=== PATIENT | male | born 1930 | race Caucasian/White ===

== ENCOUNTER 2017-02-27 09:25 | Inpatient (IN) | payer MEDICARE ==
[2017-02-27] MEDS ORDERED: ASPIRIN 81 MG CHEW PO STA (09:48)
[2017-02-27 10:07] LABS: Basophils # (A) 0.1 k/uL (0-0.2); Basophils % (A) 1 %; CH 32.7; CHCM 34.9; Eosinophils # (A) 0.3 k/uL (0-0.7); Eosinophils % (A) 4 %; HCT 40.1 % (39.0-53.0); HDW 2.93; HGB 13.8 gm/dL (13.0-17.5); Luc # (Auto) 0.07; Luc % (Auto) 1; Lymphocytes # (A) 1.3 k/uL (1.0-4.8); Lymphocytes % (A) 20 %; MCH 32.5 pg (25.0-35.0); MCHC 34.5 g/dL (31.0-37.0); MCV 94.2 fL (80.0-100.0); Mean Platelet Volume 6.8; Monocytes # (A) 0.3 k/uL (0-1.0); Monocytes % (A) 5 %; Neutrophils # (A) 4.7 k/uL (1.3-7.7); Neutrophils % (A) 69 %; RBC 4.26 m/uL (4.30-5.90); RDW 13.4 % (11.5-15.5); WBC 6.8 k/uL (3.8-10.6); WBC (Perox) 6.87
[2017-02-27 10:16] LABS: Partial Thromboplastin Time 23.9 sec (22.0-30.0); Prothrombin Time 10.6 sec (9.0-12.0)
--- NOTE | 2017-02-27 10:23 | XR ---
EXAMINATION TYPE: XR chest 2V DATE OF EXAM: 02/27/2017 10:19 AM COMPARISON: NONE INDICATION: Chest pain, respiratory infection TECHNIQUE: Single frontal view of the chest is obtained. FINDINGS: The heart size is normal. The pulmonary vasculature is normal. Minimal subsegmental atelectasis at the left base. Some mild right lower lobe subsegmental atelectasi s may be present. IMPRESSION: 1. Findings suggestive of by basilar subsegmental atelectasis. Mild lower lobe pneumonia could be con sidered. Follow-up exams can be performed as clinically indicated.
[2017-02-27 10:30] LABS: ALT 25 U/L (21-72); AST 20 U/L (17-59); Alkaline Phosphatase 111 U/L (38-126); Anion Gap 11 mmol/L; Blood Urea Nitrogen 13 mg/dL (9-20); Calcium 8.5 mg/dL (8.4-10.2); Carbon Dioxide 24 mmol/L (22-30); Chloride 107 mmol/L (98-107); Creatine Kinase 61 U/L (55-170); Glucose 168 mg/dL (74-99); Non-African American GFR(MDRD) 55 (>60 ml/min/1.73 sqM); Potassium 3.8 mmol/L (3.5-5.1); Sodium 142 mmol/L (137-145); Total Bilirubin 1.1 mg/dL (0.2-1.3); Total Protein 6.5 g/dL (6.3-8.2)
[2017-02-27 10:42] LABS: Creatine Kinase MB 0.4 ng/mL (0.0-2.4); Troponin I <0.012 ng/mL (0.000-0.034)
--- NOTE | 2017-02-27 12:14 | ED ---
Chest Pain HPI - General Chief Complaint: Chest Pain Stated Complaint: chest pain Time Seen by Provider: 02/27/17 09:37 Source: patient, family, RN notes reviewed Mode of arrival: wheelchair Limitations: no limitations - History of Present Illness Initial Comments: This is a 86-year-old male who presents with complaints of chest pain. He states is about a 5/10 he couldn't describe how was felt he states it was last evening when he had a slight cough for the pain woke him up he had a set up for about an hour so before resolved by itself. He denies any fevers chills sweats or phlegm production no prior history of lung or heart disease that he is aware of. He does use a CPAP mask at night. He denies any trauma. MD Complaint: chest pain - Related Data Home Medications Medication Instructions Recorded Confirmed Atorvastatin [Lipitor] 10 mg PO DAILY@1800 02/27/17 02/27/17 Clopidogrel Bisulfate [Plavix] 75 mg PO DAILY@1200 02/27/17 02/27/17 Dorzolamide-Timolol 2%/0.5% 1 drop BOTH EYES TID 02/27/17 02/27/17 [dorzolamide-Timolol 2%/0.5%] Allergies Allergy/AdvReac Type Severity Reaction Status Date / Time No Known Allergies Allergy Verified 02/27/17 10:04 Review of Systems ROS Statement: Those systems with pertinent positive or pertinent negative responses have been documented in the HPI. ROS Other: All systems not noted in ROS Statement are negative. EKG Findings - EKG Results: EKG: interpreted by NIC, sinus rhythm (Sinus rhythm a rate of 77 FL interval 172 QRS duration 120 QT/QTC of 390/441 low-voltage QRS right bundle-branch block no acute ST-T wave changes seen at this time.) Past Medical History Past Medical History: Hyperlipidemia Additional Past Medical History / Comment(s): GLAUCOMA, TIA History of Any Multi-Drug Resistant Organisms: None Reported Past Surgical History: Appendectomy, Cholecystectomy Additional Past Surgical History / Comment(s): PROSTATE SURGERY Past Psychological History: No Psychological Hx Reported Smoking Status: Former smoker Past Alcohol Use History: None Reported Past Drug Use History: None Reported General Exam - General Exam Comments Initial Comments: This is a well-developed well-nourished awake alert oriented 3 male Limitations: no limitations General appearance: alert, in no apparent distress Head exam: Present: atraumatic, normocephalic, normal inspection Eye exam: Present: normal appearance, PERRL, EOMI. Absent: scleral icterus, conjunctival injection, periorbital swelling ENT exam: Present: normal exam, mucous membranes moist Neck exam: Present: normal inspection. Absent: tenderness, meningismus, lymphadenopathy Respiratory exam: Present: normal lung sounds bilaterally. Absent: respiratory distress, wheezes, rales, rhonchi, stridor Cardiovascular Exam: Present: regular rate, normal rhythm, normal heart sounds. Absent: systolic murmur, diastolic murmur, rubs, gallop, clicks GI/Abdominal exam: Present: soft, normal bowel sounds. Absent: distended, tenderness, guarding, rebound, rigid Extremities exam: Present: normal inspection, full ROM, normal capillary refill , pedal edema (Trace edema). Absent: tenderness, joint swelling, calf tenderness Back exam: Present: normal inspection Neurological exam: Present: alert, oriented X3, CN II-XII intact Psychiatric exam: Present: normal affect, normal mood Skin exam: Present: warm, dry, intact, normal color. Absent: rash Course Vital Signs 02/27/17 02/27/17 09:27 09:45 Temperature 98.7 F 96.8 F L Pulse Rate 83 72 Respiratory 16 16 Rate Blood Pressure 130/64 127/66 O2 Sat by Pulse 95 94 L Oximetry Chest Pain MDM - MDM Review the x-ray report no acute findings. Patient is symptom free at this time the presentation IS consistent with new onset angina. I did discuss the findings and him and his family. Patient be admitted. Disposition Clinical Impression: Chest pain, Unstable angina pectoris Disposition: ADMITTED IP TO THIS [facility] Condition: Stable
[2017-02-27] MEDS ORDERED: HEPARIN SODIUM,PORCINE 5,000 UNIT/ML 1 ML VIAL IV ONE (12:16)
[2017-02-27] MEDS ORDERED: NITROGLYCERIN SL TABS 0.4 MG TAB SUBLINGUAL PRN (12:16)
[2017-02-27] MEDS ORDERED: HEPARIN SODIUM,PORCINE/D5W PMX 25,000 UNIT in DEXTROSE/WATER 1 500ML.BAG IV SCH (12:30)
[2017-02-27] MEDS: SODIUM CHLORIDE 0.9% 1,000 ML IV SCH (12:35)
[2017-02-27 16:41] LABS: Creatine Kinase 52 U/L (55-170)
[2017-02-27 16:54] LABS: Creatine Kinase MB 0.3 ng/mL (0.0-2.4); Troponin I <0.012 ng/mL (0.000-0.034)
[2017-02-27] MEDS ORDERED: RX INFO: IV CONTRAST WAS GIVEN 1 EACH MISC MISCELLANE PRN (19:33)
[2017-02-27] MEDS ORDERED: HEPARIN SODIUM,PORCINE 5,000 UNIT/ML 1 ML VIAL IV PRN ×2 (20:13→20:34)
--- NOTE | 2017-02-27 20:21 | CT ---
EXAMINATION TYPE: CT angio chest DATE OF EXAM: 02/27/2017 8:03 PM COMPARISON: NONE HISTORY: Patient complains of episode of chest pain earlier today. Patient has elevated d-dimer. CT DLP: 560 mGycm Automated exposure control for dose reduction was used. CONTRAST: CTA scan of the thorax is performed with IV Contrast, patient injected with 80 mL of Visipaque 320, p ulmonary embolism protocol. There are 3-D post processed images.. FINDINGS: There is a patchy consolidation and mild pleural thickening at the right posterior lung base. There i s some subpleural patchy interstitial infiltrate in the mid and lower lung dimas. I see no pulmonary mass. There are multiple filling defects in the right lower lobe pulmonary arteries. I see no mediastinal a denopathy. There is no pericardial effusion. Thoracic aorta shows no evidence of aneurysm or dissection. Heart size is fairly normal. IMPRESSION: THERE IS A RIGHT LOWER LOBE PULMONARY EMBOLISM AND ALSO INFILTRATE AND MILD PLEURAL THICKENING IN THE RIGHT LOWER LOBE THAT COULD RELATE TO PULMONARY INFARCT. THIS REPORT WAS GIVEN VERBALLY TO HARLEY MIDDLETON AT 8:20 PM.
[2017-02-27] MEDS: DORZOLAMIDE-TIMOLOL 2-0.5% DROPS 10 ML BTL BOTH EYES SCH ×2 (20:24→20:26)
[2017-02-27] MEDS: NITROGLYCERIN OINT 1 INCH/GM PACKET TOPICAL SCH ×2 (20:27→20:29)
[2017-02-27] MEDS: ATORVASTATIN 10 MG TAB PO SCH (20:28)
[2017-02-27] MEDS: PANTOPRAZOLE 40 MG/10 ML VIAL IVP SCH (20:31)
[2017-02-27] MEDS ORDERED: HEPARIN SODIUM,PORCINE 10,000 UNIT/ML 1 ML VIAL IV STA (20:34)
--- NOTE | 2017-02-27 20:34 | HP ---
DATE OF ADMISSION: 02/27/2017 The patient is a pleasant 86-year-old, although a very poor historian came in with complaints of chest in the retrosternal area. He woke up with chest pain and the patient had a couple of hours of chest pain, not related to food. Had a little bit of pleuritic component 5 to 10 in severity, radiating to the left arm. ( ) chest pain mostly shows in the epigastric area although mostly in the abdominal area but he describes severe chest pain. The patient's pain did radiate to the left arm. Never had any history of coronary artery disease in the past. Patient denied any fever, chills. The patient denied any cough ( ). The patient denies any shortness of breath. The patient was complaining of questionable shortness of breath which is pretty vague. The patient denies any lightheadedness. Patient's chest pain has a pleuritic component as mentioned above. Patient says his chest pain is both burning as well as pressure-like sensation not related to food, resolved by itself, lasted for about 2 hour. Denied any diaphoresis. Denied any cough, fever. Patient's chest x-ray did not show any pneumonic process. I am obtaining a D. dimer. Also put him on Protonix. ROS: All other systems were negative. Unable to obtain most of the systems due to his clinical condition. home medications include: 1. Atorvastatin. 2. Plavix. 3. ( ). 4. Timolol eye drops. ALLERGIES: No known drug allergies. PAST MEDICAL HISTORY: Hyperlipidemia, glaucoma, appendectomy, cholecystectomy in the past. SOCIAL HISTORY: Former smoker. Denied any alcohol abuse. FAMILY HISTORY: Denied any family history of premature coronary artery disease. PHYSICAL EXAMINATION: VITAL SIGNS: Temperature 98.7, pulse 72, respiratory rate 16, blood pressure 127/63. Saturating at 94% on room air. GENERAL: The patient is alert and oriented x3, not in any acute distress. Well developed, well nourished. HEENT: Pupils are round and equally reacting to light. EOMI. No scleral icterus. No conjunctival pallor. Normocephalic, atraumatic. No pharyngeal erythema. No thyromegaly. CARDIOVASCULAR: S1 and S2 present. No murmurs, rubs, or gallops. PULMONARY: Chest is clear to auscultation, no wheezing or crackles. ABDOMEN: Soft, nontender, nondistended, normoactive bowel sounds. No palpable organomegaly. MUSCULOSKELETAL: No joint swelling or deformity. EXTREMITIES: No cyanosis, clubbing, or pedal edema. NEUROLOGICAL: Gross neurological examination did not reveal any focal deficits. SKIN: No rashes. LABORATORY DATA: CBC, CMP within normal limits. EKG showed some right bundle branch block without any acute ST-T waves changes. ASSESSMENT AND PLAN: 1. Chest pain appears to be mostly atypical in nature. Anyways we will rule out acute coronary syndrome and unstable angina. Cardiology was consulted. We will repeat two more troponins, further evaluation and management as per cardiology. Patient will be continued on atorvastatin. 2. Chest pain, mostly related to possible gastritis. Patient will be started on empiric Protonix inhibitors. 3. Partial gastrectomy. 4. Hyperlipidemia. 5. Regarding gastritis, we will start him on Protonix. 6. Rule out pulmonary embolism, we will obtain a D. dimer level at this time. MTDD
[2017-02-27] MEDS: HEPARIN SODIUM,PORCINE/D5W PMX 25,000 UNIT in DEXTROSE/WATER 1 500ML.BAG IV SCH (21:25)
[2017-02-27 21:42] LABS: Basophils % (A) 0 %; CH 32.9; CHCM 34.6; Eosinophils # (A) 0.4 k/uL (0-0.7); Eosinophils % (A) 5 %; HCT 38.2 % (39.0-53.0); HDW 2.91; HGB 12.8 gm/dL (13.0-17.5); Luc # (Auto) 0.13; Luc % (Auto) 2; Lymphocytes # (A) 1.8 k/uL (1.0-4.8); Lymphocytes % (A) 25 %; MCH 32.1 pg (25.0-35.0); MCHC 33.6 g/dL (31.0-37.0); MCV 95.7 fL (80.0-100.0); Mean Platelet Volume 6.7; Monocytes # (A) 0.5 k/uL (0-1.0); Monocytes % (A) 6 %; Neutrophils # (A) 4.5 k/uL (1.3-7.7); Neutrophils % (A) 62 %; RBC 3.99 m/uL (4.30-5.90); RDW 13.5 % (11.5-15.5); WBC 7.3 k/uL (3.8-10.6); WBC (Perox) 7.51
[2017-02-27 21:49] LABS: INR 1.1 (<1.1); Partial Thromboplastin Time 71.4 sec (22.0-30.0); Prothrombin Time 11.3 sec (9.0-12.0)
[2017-02-27 22:02] LABS: Creatine Kinase 51 U/L (55-170)
[2017-02-27 22:16] LABS: Creatine Kinase MB 0.4 ng/mL (0.0-2.4); Troponin I <0.012 ng/mL (0.000-0.034)
[2017-02-28 04:56] LABS: Cholesterol 114 mg/dL (<200); HDL Cholesterol 52 mg/dL (40-60); Triglycerides 76 mg/dL (<150)
[2017-02-28 05:02] LABS: Basophils % (A) 0 %; CH 33.1; CHCM 35.6; Eosinophils # (A) 0.3 k/uL (0-0.7); Eosinophils % (A) 4 %; HCT 34.7 % (39.0-53.0); HDW 3.06; HGB 12.5 gm/dL (13.0-17.5); Luc # (Auto) 0.13; Luc % (Auto) 2; Lymphocytes # (A) 1.8 k/uL (1.0-4.8); Lymphocytes % (A) 22 %; MCH 33.5 pg (25.0-35.0); MCV 93.1 fL (80.0-100.0); Mean Platelet Volume 7.2; Monocytes # (A) 0.5 k/uL (0-1.0); Monocytes % (A) 6 %; Neutrophils # (A) 5.3 k/uL (1.3-7.7); Neutrophils % (A) 66 %; RBC 3.72 m/uL (4.30-5.90); WBC (Perox) 8.13
[2017-02-28] MEDS: NITROGLYCERIN OINT 1 INCH/GM PACKET TOPICAL SCH (05:46)
[2017-02-28] MEDS: HEPARIN SODIUM,PORCINE/D5W PMX 25,000 UNIT in DEXTROSE/WATER 1 500ML.BAG IV SCH (08:15)
[2017-02-28] MEDS: DORZOLAMIDE-TIMOLOL 2-0.5% DROPS 10 ML BTL BOTH EYES SCH ×3 (08:57→20:00)
[2017-02-28] MEDS: PANTOPRAZOLE 40 MG/10 ML VIAL IVP SCH (08:58)
[2017-02-28] MEDS ORDERED: ASPIRIN 325 MG TAB PO SCH (09:00)
--- NOTE | 2017-02-28 10:40 | P.CNPUL ---
History of Present Illness Consult date: 02/28/17 Requesting physician: Adilia Saleh Reason for consult: chest pain, abnormal CXR/CT Chief complaint: Chest pain History of present illness: This is a very pleasant 86-year-old gentleman who follows with Dr. Val Caraballo in [place] as his primary care provider. 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 He has a remote history of smoking. No history of COPD/emphysema. He presented here yesterday after waking up with chest pain. He states he sat up at the side of the bed for a bit and it somewhat subsided and he was able to go back to sleep. However while having breakfast he was still having some midsternal chest discomfort. No nausea, no radiation, no diaphoresis, no palpitations, dizziness or lightheadedness. No significant shortness of breath. A CT angiogram revealed a right lower lobe pulmonary embolism and right lower lobe infiltrate with mild pleural thickening in the right lower lobe that could be related to pulmonary infarct. He was admitted and initiated on heparin. He denies any provoking factors. No recent surgery, no recent injury, no long travel, no sedentary lifestyle, no previous history of DVT/PE, no family history. Currently, he is sitting up in a chair at the bedside. He denies any worsening chest discomfort. No shortness of breath, cough or congestion. No fever, chills or night sweats. He is maintaining good O2 saturations in the 90s on room air. No leukocytosis. Troponins are negative 3. Review of Systems 14 point review of system was conducted. All negative other than as mentioned in the HPI. Past Medical History Past Medical History: Cancer, Hyperlipidemia Additional Past Medical History / Comment(s): BILATERAL GLAUCOMA, TIAS X2, PROSTATE CANCER WITH SURGERY/RADIATION. History of Any Multi-Drug Resistant Organisms: None Reported Past Surgical History: Appendectomy, Cholecystectomy, Prostate Surgery Additional Past Surgical History / Comment(s): PROSTATECTOMY, COLONOSCOPY, BILATERAL CATARACT REMOVAL WITH LENS IMPLANTS. Past Anesthesia/Blood Transfusion Reactions: No Reported Reaction Past Psychological History: No Psychological Hx Reported Additional Psychological History / Comment(s): PT LIVES WITH HIS SON. HE USES A CANE TO AMBULATE. THERE IS A DOG IN THE HOME. HE DOES NOT DRIVE, HIS SON TAKES HIM TO [employer]. Smoking Status: Former smoker Past Alcohol Use History: None Reported Additional Past Alcohol Use History / Comment(s): PT STARTED SMOKING IN HIS 20' S AND QUIT IN THE 1970'S Past Drug Use History: None Reported - Past Family History Father Family Medical History: No Reported History Additional Family Medical History / Comment(s): FATHER WAS HEALTHY AND LIVED TO BE IN HIS 90'S Mother Family Medical History: Cancer Additional Family Medical History / Comment(s): MOTHER HAD SPINAL CANCER AND AT THE AGE OF 68YRS. Medications and Allergies Home Medications Medication Instructions Recorded Confirmed Type Atorvastatin [Lipitor] 10 mg PO DAILY@1800 02/27/17 02/27/17 History Clopidogrel Bisulfate [Plavix] 75 mg PO DAILY@1200 02/27/17 02/27/17 History Dorzolamide-Timolol 2%/0.5% 1 drop BOTH EYES TID 02/27/17 02/27/17 History [dorzolamide-Timolol 2%/0.5%] Allergies Allergy/AdvReac Type Severity Reaction Status Date / Time No Known Allergies Allergy Verified 02/27/17 10:04 Physical Exam Vitals: Vital Signs Temp Pulse Pulse Pulse Resp BP BP 02/28/17 07:50 97.6 F 63 16 89/56 02/28/17 05:00 64 18 90/53 02/28/17 04:00 64 18 02/28/17 03:30 98.8 F 62 18 89/54 02/28/17 00:00 97.4 F L 63 18 103/61 02/27/17 20:00 98.0 F 63 16 117/59 02/27/17 15:08 97.5 F L 68 18 119/62 02/27/17 13:28 97.1 F L 57 L 18 121/64 02/27/17 12:27 61 18 115/66 Pulse Ox 02/28/17 07:50 93 L 02/28/17 05:00 94 L 02/28/17 04:00 02/28/17 03:30 94 L 02/28/17 00:00 93 L 02/27/17 20:00 96 02/27/17 15:08 96 02/27/17 13:28 95 02/27/17 12:27 94 L Intake and Output 02/27/17 02/28/1702/28/17 22:59 06:59 14:59 Intake Total 160.333 277.137 68.689 Output Total 300 Balance 160.333 -22.863 68.689 Intake: Intake, IV Titration 160.333 277.137 68.689 Amount Heparin Sodium,Porcine/ 160.333 D5w Pmx 25,000 unit In Dextrose/Water 1 500ml. bag @ 11.306 UNITS/KG/HR 20 mls/hr IV .Q24H RAYNE Rx #:[id number] Heparin Sodium,Porcine/ 277.137 68.689 D5w Pmx 25,000 unit In Dextrose/Water 1 500ml. bag @ 18 UNITS/KG/HR 33. 19 mls/hr IV .Q15H4M RAYNE Rx#:[id number] Output: Urine 300 Other: Voiding Method Toilet Toilet # Voids 1 Weight 92.2 kg 89.8 kg GENERAL EXAM: Alert, active, comfortable in no apparent distress. HEAD: Normocephalic. EYES: Normal reaction of pupils, equal size. NOSE: Clear with pink turbinates. THROAT: No erythema or exudates. NECK: No masses, no JVD. CHEST: No chest wall deformity. LUNGS: Equal air entry with no crackles, wheeze, rhonchi or dullness. CVS: S1 and S2 normal with no audible murmurs, regular rhythm. ABDOMEN: No hepatosplenomegaly, normal bowel sounds, no guarding or rigidity. SPINE: No scoliosis or deformity SKIN: No rashes CENTRAL NERVOUS SYSTEM: No focal deficits, tone is normal in all 4 extremities. Extremities: There is no peripheral edema. No clubbing, no cyanosis. Peripheral pulses are intact. Results - Laboratory Findings CBC and BMP: 02/28/17 02:55 02/27/17 09:53 PT/INR, D-dimer PT 11.3 sec (9.0-12.0) 02/27/17 21:24 INR 1.1 (<1.1) 02/27/17 21:24 D-Dimer 1.41 mg/L FEU (<0.60) H 02/27/17 17:09 Abnormal lab findings: Abnormal Labs 02/27/17 02/27/17 02/27/17 15:46 17:09 17:10 RBC Hgb Hct Plt Count APTT 40.0 H D-Dimer 1.41 H Total Creatine Kinase 52 L 02/27/17 02/27/17 02/27/17 21:24 21:24 21:24 RBC 3.99 L Hgb 12.8 L Hct 38.2 L Plt Count 144 L APTT 71.4 H D-Dimer Total Creatine Kinase 51 L 02/28/17 02/28/17 02:45 02:55 RBC 3.72 L Hgb 12.5 L Hct 34.7 L Plt Count 135 L APTT 177.1 H* D-Dimer Total Creatine Kinase - Diagnostic Findings Chest x-ray: image reviewed CT scan - chest: image reviewed Assessment and Plan Plan: Impression: #1 Chest pain secondary to right lower lobe pulmonary embolism with suspected pulmonary infarct. No clear evidence of acute coronary syndrome. #2 History of prostate cancer, status post prostatectomy/radiation. #3 History of CVA/TIA, treated with atorvastatin and Plavix in the outpatient setting. #4 Hyperlipidemia. #5 Remote history of cigar use. Plan: The patient was seen and evaluated by Dr. Yusuf. His chest x-ray and CT scans were reviewed. We'll obtain an echocardiogram to rule out any significant right ventricular strain. The patient remains on heparin and will be initiated on Xarelto if his insurance covers it if not will be initiated on warfarin. He will need at least 3-6 months of anticoagulation. We will continue to follow make further recommendations based on his clinical status. Time with Patient: Greater than 30
--- NOTE | 2017-02-28 11:44 | ECHOF ---
Referral Reason:Pulmonary embolism, chest pain MEASUREMENTS -------- HEIGHT: 165.1 cm WEIGHT: 89.4 kg BP: 130/40 RVIDd: 4.6 cm (< 3.3) IVSd: 0.8 cm (0.6 - 1.1) LVIDd: 3.8 cm (3.9 - 5.3) LVPWd: 0.9 cm (0.6 - 1.1) IVSs: 1.0 cm LVIDs: 2.5 cm LVPWs: 0.9 cm Ao Diam: 4.5 cm (2.0 - 3.7) AV Cusp: 1.8 cm (1.5 - 2.6) LA Diam: 3.7 cm (2.7 - 3.8) MV EXCURSION: 20.277 mm (> 18.000) MV EF SLOPE: 106 mm/s (70 - 150) EPSS: 1.4 cm MV E Krystian: 0.40 m/s MV DecT: 283 ms MV A Krystian: 0.80 m/s MV E/A Ratio: 0.50 RAP: 5.00 mmHg RVSP: 43.88 mmHg FINDINGS -------- Sinus rhythm. This was a techncally difficult study with suboptimal views, , Definity utilized for enhancement of images. There is mild concentric left ventricular hypertrophy. Overall left ventricular systolic function is normal with, an EF between 55 - 60 %. The diastolic filling pattern is normal for the age of the patient 8.88. The right ventricle is moderate to severely enlarged. The left atrial size is normal. The right atrium is mildly enlarged. 1.5MG OF DEFINITY UTLIZED: 2 OR MORE WALL SEGMENTS NOT VISUALIZED. There is mild aortic valve sclerosis. There is no evidence of aortic regurgitation. Mild mitral annular calcification present. Mild mitral regurgitation is present. Mild tricuspid regurgitation present. There is moderate pulmonary hypertension. The right ventricular systolic pressure, as measured by Doppler, is 43.88mmHg. The pulmonic valve was not well visualized. Aortic Root is Dilated and measures 4.5cm There is no pericardial effusion. CONCLUSIONS -------- 1. There is mild concentric left ventricular hypertrophy. 2. There is moderate pulmonary hypertension. 3. The right ventricular systolic pressure, as measured by Doppler, is 43.88mmHg. 4. The pulmonic valve was not well visualized. 5. Aortic Root is Dilated and measures 4.5cm 6. Overall left ventricular systolic function is normal with, an EF between 55 - 60 %. 7. The diastolic filling pattern is normal for the age of the patient 8.88 8. The right ventricle is moderate to severely enlarged. 9. 1.5MG OF DEFINITY UTLIZED: 2 OR MORE WALL SEGMENTS NOT VISUALIZED. 10. There is mild aortic valve sclerosis. 11. Mild mitral annular calcification present. 12. Mild mitral regurgitation is present. 13. Mild tricuspid regurgitation present. [employer]ATOR: Bel Schroeder RDCS
[2017-02-28] MEDS ORDERED: CLOPIDOGREL 75 MG TAB PO SCH (12:00)
[2017-02-28] MEDS: SODIUM CHLORIDE 0.9% 1,000 ML IV SCH (12:23)
--- NOTE | 2017-02-28 14:36 | US ---
EXAMINATION TYPE: US venous doppler duplex LE DATE OF EXAM: 02/28/2017 2:20 PM COMPARISON: NONE CLINICAL HISTORY: elevated D dimer. SIDE PERFORMED: Bilateral TECHNIQUE: The lower extremity deep venous system is examined utilizing real time linear array sonog dilan with graded compression, doppler sonography and color-flow sonography. VESSELS IMAGED: External Iliac Vein (EIV) Common Femoral Vein Deep Femoral Vein Greater Saphenous Vein *-not seen on left Femoral Vein Popliteal Vein Small Saphenous Vein * Proximal Calf Veins-not seen on right/swelling (* superficial vessels) Patient has extensive swelling bilateral with pitting edema Right Leg: Negative for DVT Left Leg: Negative for DVT No popliteal fossa lesion was identified. IMPRESSION: THIS EXAMINATION IS NEGATIVE FOR DVT IN BOTH LEGS.
--- NOTE | 2017-02-28 14:40 | CONS ---
DATE OF CONSULTATION: This is an 86-year-old elderly gentleman who has been admitted to the hospital with episode of chest discomfort. He presented with chest pressure; said that he had it all evening yesterday; it seems to be worse when he takes a deep breath or coughs. He did not have any fever or chills. His pain seems to be sharp in quality. He had an elevated D-dimer and positive for pulmonary embolism on CT angiography and is now on heparin. He has no chest pain and is resting comfortably without symptoms. PAST MEDICAL HISTORY: 1. Hypertension. 2. Hyperlipidemia. 3. History of TIA in the past; details unclear. 4. History of glaucoma. 5. He is status post appendectomy and cholecystectomy. ALLERGIES: NONE. MEDICATIONS: 1. Lipitor 10 mg daily. 2. Plavix 75 mg daily. 3. Timolol eye drops. On examination, his blood pressure is 108/70. Pulse rate is 68 per minute, regular. HEENT: Unremarkable. Fundus was not examined by me. Neck is supple. JVD is not easily evident. There is no carotid bruit. Heart exam reveals S1, S2 heard normally with somewhat distant heart sounds. There is a short systolic murmur at the base. Lungs reveal diminished air entry in bilateral lung dimas. Abdomen is soft, nontender. Lower extremities reveal diminished pulses. Central nervous system is normal. Laboratory data suggests elevated D-dimer of 1.41. His troponins are unremarkable. His CT angiography revealed evidence of a right lower lobe pulmonary embolism. Echocardiogram revealed enlarged right ventricle with moderately elevated PA pressures and also preserved left ventricular systolic function. IMPRESSION: 1. Acute pulmonary embolism. 2. Hyperlipidemia. 3. History of transient ischemic attack. RECOMMENDATIONS: I agree with the IV heparin. I believe this patient should be on Coumadin as well. We can initiate him on Coumadin. We should probably discontinue the Plavix and aspirin, in view of the fact he is on IV heparin. He will need to be at least 3 months or so on Coumadin. He appears to be hemodynamically stable. No aggressive intervention necessary at this time. I will discontinue both Plavix and aspirin for the time being and consider initiating him on Coumadin. I discussed my thoughts in detail with the patient. Thank you very much for the consult.
[2017-02-28] MEDS: ATORVASTATIN 10 MG TAB PO SCH (17:24)
[2017-02-28] MEDS ORDERED: WARFARIN 7.5 MG TAB PO ONE (18:00)
--- NOTE | 2017-02-28 20:10 | PN ---
Patient is admitted for chest pain, suspicious for pulmonary embolism. We did a CT angiogram of the chest which showed pulmonary embolism in the left lower lobe pulmonary trunk with suspicion of pulmonary infarction. Patient unfortunately is not approved for newer anticoagulants, because of which I will start him on Xarelto. Will see if patient can be bridged with Lovenox. Since he is complaining of chest pain and some shortness of breath, we will keep him here today. REVIEW OF SYSTEMS: CARDIOVASCULAR: No chest pain, no orthopnea, no PND, no palpitations. PULMONARY: As described in HPI. GASTROINTESTINAL: No diarrhea, nausea or vomiting. No abdominal pain. Normoactive bowel sounds. NEUROLOGIC: No headaches, no weakness, no numbness. Medications were reviewed. PHYSICAL EXAMINATION: VITAL SIGNS: Temperature 97.2, pulse of 63, respiratory rate of 16. Blood pressure is 103/54. Saturating at 93% on room air. GENERAL: The patient is alert and oriented x3, not in any acute distress. Well developed, well nourished. HEENT: Pupils are round and equally reacting to light. EOMI. No scleral icterus. No conjunctival pallor. Normocephalic, atraumatic. No pharyngeal erythema. No thyromegaly. CARDIOVASCULAR: S1 and S2 present. No murmurs, rubs, or gallops. PULMONARY: Chest is clear to auscultation, no wheezing or crackles. ABDOMEN: Soft, nontender, nondistended, normoactive bowel sounds. No palpable organomegaly. MUSCULOSKELETAL: No joint swelling or deformity. EXTREMITIES: No cyanosis, clubbing, or pedal edema. NEUROLOGICAL: Gross neurological examination did not reveal any focal deficits. SKIN: No rashes. LABORATORY DATA: Patient's APTT is a bit elevated, because of which we will hold the heparin obviously. CT angiogram of the chest as mentioned above. Patient does not have any DVT on the Doppler of the lower extremity. Patient may have an occult malignancy which need to be evaluated for, but considering his age patient may not be a candidate for any oncological evaluation. Patient is not a candidate for any screening tests, either, as he is past the screening test age. His aspirin will be discontinued. ASSESSMENT AND PLAN: 1. Left lower lobe pulmonary embolism with infarction. 2. History of partial gastrectomy in the past. 3. Hyperlipidemia. 4. Glaucoma. For above-mentioned chronic medical problems, patient will be continued on his home medications.
[2017-03-01 00:56] LABS: Glucose,Whole Blood 125 mg/dL (75-99)
[2017-03-01] MEDS: HEPARIN SODIUM,PORCINE/D5W PMX 25,000 UNIT in DEXTROSE/WATER 1 500ML.BAG IV SCH (02:31)
[2017-03-01 02:49] LABS: INR 1.1 (<1.1); Partial Thromboplastin Time 57.2 sec (22.0-30.0); Prothrombin Time 10.9 sec (9.0-12.0)
[2017-03-01 02:53] LABS: Basophils % (A) 1 %; CH 32.8; CHCM 34.7; Eosinophils # (A) 0.3 k/uL (0-0.7); Eosinophils % (A) 5 %; HCT 35.8 % (39.0-53.0); HDW 2.94; HGB 12.2 gm/dL (13.0-17.5); Luc # (Auto) 0.09; Luc % (Auto) 1; Lymphocytes # (A) 1.2 k/uL (1.0-4.8); Lymphocytes % (A) 19 %; MCH 32.4 pg (25.0-35.0); MCV 95.1 fL (80.0-100.0); Mean Platelet Volume 7.4; Monocytes # (A) 0.4 k/uL (0-1.0); Monocytes % (A) 6 %; Neutrophils # (A) 4.5 k/uL (1.3-7.7); Neutrophils % (A) 68 %; RBC 3.76 m/uL (4.30-5.90); RDW 13.3 % (11.5-15.5); WBC 6.5 k/uL (3.8-10.6); WBC (Perox) 6.39
[2017-03-01 03:58] VITALS: TEMP 97.6
[2017-03-01] MEDS: PANTOPRAZOLE 40 MG/10 ML VIAL IVP SCH (08:52)
[2017-03-01] MEDS: DORZOLAMIDE-TIMOLOL 2-0.5% DROPS 10 ML BTL BOTH EYES SCH (08:52)
--- NOTE | 2017-03-01 11:18 | P.PN ---
Subjective Principal diagnosis: Acute pulmonary embolism This is a very pleasant 86-year-old gentleman who follows with Dr. Val Caraballo in [place] as his primary care provider. 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 He has a remote history of smoking. No history of COPD/emphysema. He presented here yesterday after waking up with chest pain. He states he sat up at the side of the bed for a bit and it somewhat subsided and he was able to go back to sleep. However while having breakfast he was still having some midsternal chest discomfort. No nausea, no radiation, no diaphoresis, no palpitations, dizziness or lightheadedness. No significant shortness of breath. A CT angiogram revealed a right lower lobe pulmonary embolism and right lower lobe infiltrate with mild pleural thickening in the right lower lobe that could be related to pulmonary infarct. He was admitted and initiated on heparin. He denies any provoking factors. No recent surgery, no recent injury, no long travel, no sedentary lifestyle, no previous history of DVT/PE, no family history. Currently, he is sitting up in a chair at the bedside. He denies any worsening chest discomfort. No shortness of breath, cough or congestion. No fever, chills or night sweats. He is maintaining good O2 saturations in the 90s on room air. No leukocytosis. Troponins are negative 3. Reevaluated today on 03/01/2017, patient is doing well, relatively asymptomatic. Discharge planning is in progress, patient will likely be discharged home on Coumadin. However I feel since this is a non-provoked episode of pulmonary embolism, definite treatment will be over a year and possibly lifetime. At this point patient has no active pulmonary symptoms, no cough no wheezing no shortness of breath no chest pain and no hemoptysis. Remains on heparin, and Coumadin was started on 02/28/2017 at 7.5 mg one dose only. Objective - Vital Signs Vital signs: Vital Signs Temp 97.6 F 03/01/17 08:29 Pulse 65 03/01/17 08:29 Resp 16 03/01/17 08:29 BP 111/58 03/01/17 08:29 Pulse Ox 95 03/01/17 08:29 Intake & Output 02/28/17 03/01/17 03/01/17 18:59 06:59 18:59 Intake Total 775.485 414.924 Output Total 775 Balance 775.485 -360.076 Weight 89.8 kg Intake: IV 148 47 Heparin Sodium,Porcine/ 85 27 D5w Pmx 25,000 unit In Dextrose/Water 1 500ml. bag @ 18 UNITS/KG/HR 33. 19 mls/hr IV .Q15H4M [facility] Rx#:[id number] Sodium Chloride 0.9% 1, 63 20 000 ml @ 20 mls/hr IV . Q24H [facility] Rx#:[id number] Intake, IV Titration 177.485 367.924 Amount Heparin Sodium,Porcine/ 177.485 367.924 D5w Pmx 25,000 unit In Dextrose/Water 1 500ml. bag @ 18 UNITS/KG/HR 33. 19 mls/hr IV .Q15H4M [facility] Rx#:[id number] Oral 450 Output: Urine 775 Other: Voiding Method Toilet Urinal # Voids 1 - Exam GENERAL EXAM: Alert, active, comfortable in no apparent distress. HEAD: Normocephalic. EYES: Normal reaction of pupils, equal size. NOSE: Clear with pink turbinates. THROAT: No erythema or exudates. NECK: No masses, no JVD. CHEST: No chest wall deformity. LUNGS: Equal air entry with no crackles, wheeze, rhonchi or dullness. CVS: S1 and S2 normal with no audible murmurs, regular rhythm. ABDOMEN: No hepatosplenomegaly, normal bowel sounds, no guarding or rigidity. SPINE: No scoliosis or deformity SKIN: No rashes CENTRAL NERVOUS SYSTEM: No focal deficits, tone is normal in all 4 extremities. Extremities: There is no peripheral edema. No clubbing, no cyanosis. Peripheral pulses are intact. - Labs CBC & Chem 7: 03/01/17 02:26 02/27/17 09:53 Labs: Abnormal Lab Results - Last 24 Hours (Table) 02/28/17 02/28/17 03/01/17 Range/Units 11:30 18:10 00:55 RBC (4.30-5.90) m/uL Hgb (13.0-17.5) gm/dL Hct (39.0-53.0) % Plt Count (150-450) k/uL APTT 80.5 H 42.6 H (22.0-30.0) sec POC Glucose (mg/dL) 125 H (75-99) mg/dL 03/01/17 03/01/17 Range/Units 02:26 02:26 RBC 3.76 L (4.30-5.90) m/uL Hgb 12.2 L (13.0-17.5) gm/dL Hct 35.8 L (39.0-53.0) % Plt Count 134 L (150-450) k/uL APTT 57.2 H (22.0-30.0) sec POC Glucose (mg/dL) (75-99) mg/dL Assessment and Plan Plan: #1 Chest pain secondary to right lower lobe pulmonary embolism with suspected pulmonary infarct. No clear evidence of acute coronary syndrome. #2 History of prostate cancer, status post prostatectomy/radiation. #3 History of CVA/TIA, treated with atorvastatin and Plavix in the outpatient setting. #4 Hyperlipidemia. #5 Remote history of cigar use. Recommendation: Agree with discharge planning on Coumadin, his INR has to be monitored closely by his primary care physician, length of treatment with definitely have to be more than a year at least, and possibly lifetime. Unless the patient develops any major side effects related to Coumadin. We will evaluate the patient on outpatient basis. Time with Patient: Less than 30
--- NOTE | 2017-03-01 11:38 | P.PN ---
Subjective Principal diagnosis: PE This is an 86-year-old gentleman who presented to the hospital primarily with symptoms of chest pain and shortness of breath, he ruled in for a pulmonary embolism. He has history also of hyperlipidemia and TIA. He is currently on IV heparin drip, he was given one dose of Coumadin yesterday we will check to see if the patient has coverage for xarelto, if so we will start the patient on xarelto 15 mg one tablet by mouth twice a day for 21 days, then start him on 20 mg daily. Objective - Vital Signs Vital signs: Vital Signs Temp 97.6 F 03/01/17 08:29 Pulse 65 03/01/17 08:29 Resp 16 03/01/17 08:29 BP 111/58 03/01/17 08:29 Pulse Ox 95 03/01/17 08:29 Intake & Output 02/28/17 03/01/17 03/01/17 18:59 06:59 18:59 Intake Total 775.485 414.924 Output Total 775 300 Balance 775.485 -360.076 -300 Weight 89.8 kg Intake: IV 148 47 Heparin Sodium,Porcine/ 85 27 D5w Pmx 25,000 unit In Dextrose/Water 1 500ml. bag @ 18 UNITS/KG/HR 33. 19 mls/hr IV .Q15H4M [facility] Rx#:[id number] Sodium Chloride 0.9% 1, 63 20 000 ml @ 20 mls/hr IV . Q24H [facility] Rx#:[id number] Intake, IV Titration 177.485 367.924 Amount Heparin Sodium,Porcine/ 177.485 367.924 D5w Pmx 25,000 unit In Dextrose/Water 1 500ml. bag @ 18 UNITS/KG/HR 33. 19 mls/hr IV .Q15H4M [facility] Rx#:[id number] Oral 450 Output: Urine 775 300 Other: Voiding Method Toilet Urinal # Voids 1 1 - Exam PHYSICAL EXAMINATION: HEENT: Head is atraumatic, normocephalic. Pupils equal, round. Neck is supple. There is no elevated jugular venous pressure. HEART EXAMINATION: Heart S1, S2 normal. No murmur or gallop heard. CHEST EXAMINATION: Lungs are clear to auscultation and precussion. No chest wall tenderness is noted on palpation or with deep breathing. ABDOMEN: Soft, nontender. Bowel sounds are heard. No organomegaly noted. EXTREMITIES: 2+ peripheral pulses with no evidence of peripheral edema and no calf tenderness noted. NEUROLOGIC patient is awake, alert and oriented -3. . - Labs CBC & Chem 7: 03/01/17 02:26 02/27/17 09:53 Labs: Abnormal Lab Results - Last 24 Hours (Table) 02/28/17 02/28/17 03/01/17 Range/Units 11:30 18:10 00:55 RBC (4.30-5.90) m/uL Hgb (13.0-17.5) gm/dL Hct (39.0-53.0) % Plt Count (150-450) k/uL APTT 80.5 H 42.6 H (22.0-30.0) sec POC Glucose (mg/dL) 125 H (75-99) mg/dL 03/01/17 03/01/17 Range/Units 02:26 02:26 RBC 3.76 L (4.30-5.90) m/uL Hgb 12.2 L (13.0-17.5) gm/dL Hct 35.8 L (39.0-53.0) % Plt Count 134 L (150-450) k/uL APTT 57.2 H (22.0-30.0) sec POC Glucose (mg/dL) (75-99) mg/dL Assessment and Plan (1) Pulmonary embolism Status: Acute (2) Hyperlipemia Status: Acute (3) TIA (transient ischemic attack) Status: Acute Plan: Cardiology's perspective, if the patient is covered for xarelto, we will initiate xarelto 15 mg one tablet by mouth twice a day for 21 days, then 20 mg daily, and discontinue the heparin. We will follow him along with you now on an as-needed basis only, please don't hesitate to call with any questions. DNP note has been reviewed, I agree with a documented findings and plan of care. Patient was seen and examined.
[2017-03-01 12:50] VITALS: BP 105/62; PULSE 67; RESP 17
--- NOTE | 2017-03-02 12:25 | DS ---
DATE OF ADMISSION: 02/27/2017 DATE OF DISCHARGE: 03/01/2017 Patient is an 86-year-old came in with chest pain and found to have pulmonary embolism on the left lower lobe pulmonary trunk and patient has possibly has some pulmonary infarct secondary to that as well. Patient is otherwise clinically doing well and patient will be discharged today with bridging Lovenox and Coumadin 5 mg with repeat INR in 3 days. Patient will need to closely follow with primary care physician, Dr. Sophia Caraballo in about 3 to 7 days. The patient will follow with Dr. Yusuf as an outpatient as well. REVIEW OF SYSTEMS: CARDIOVASCULAR: No chest pain, no orthopnea, no PND, no palpitations. PULMONARY: Denied any shortness of breath. No cough or hemoptysis. GASTROINTESTINAL: No diarrhea, nausea or vomiting. No abdominal pain. Normoactive bowel sounds. NEUROLOGIC: No headaches, no weakness, no numbness. Medications were reviewed. PHYSICAL EXAMINATION: Temperature 97.6, pulse of 59, respiratory rate of 17, blood pressure is 104/62, saturating at 94% on room air. GENERAL: The patient is alert and oriented x3, not in any acute distress. Well developed, well nourished. HEENT: Pupils are round and equally reacting to light. EOMI. No scleral icterus. No conjunctival pallor. Normocephalic, atraumatic. No pharyngeal erythema. No thyromegaly. CARDIOVASCULAR: S1 and S2 present. No murmurs, rubs, or gallops. PULMONARY: Chest is clear to auscultation, no wheezing or crackles. ABDOMEN: Soft, nontender, nondistended, normoactive bowel sounds. No palpable organomegaly. MUSCULOSKELETAL: No joint swelling or deformity. EXTREMITIES: No cyanosis, clubbing, or pedal edema. NEUROLOGICAL: Gross neurological examination did not reveal any focal deficits. SKIN: No rashes. FINAL DIAGNOSES: 1. Left lower lobe pulmonary embolism with infarction. 2. History of partial gastrectomy. 3. Hyperlipidemia. 4. Glaucoma. PLAN: As mentioned above. Please refer to my depart summary for further details of discharge medications. Patient has history of TIAs in the past. Patient is on Plavix, which will be discontinued as patient is being started on Coumadin and bridging Lovenox. Dietary counseling regarding Coumadin. Diet will be provided. I spent greater than 35 minutes in total discharge process.
== END 2017-03-01 16:17 | disposition home or self-care (01) | DRG 176 ==
LOC: EC 09:25 → 3OBS 12:18 → OBSVTOIN 12:18 → 3OBS 14:14 → 6SEL 22:08
PROVIDERS: ADMIT Internal Medicine; ATTEND Internal Medicine
DX: I26.99 Other pulmonary embolism without acute cor pulmonale (principal); I10 Essential (primary) hypertension; E78.5 Hyperlipidemia, unspecified; H40.9 Unspecified glaucoma; K29.70 Gastritis, unspecified, without bleeding; Z87.891 Personal history of nicotine dependence; Z90.49 Acquired absence of other specified parts of digestive tract; Z90.3 Acquired absence of stomach [part of]; Z85.46 Personal history of malignant neoplasm of prostate; Z90.79 Acquired absence of other genital organ(s); Z86.73 Personal history of transient ischemic attack (TIA), and cerebral infarction without residual deficits; Z98.41 Cataract extraction status, right eye; Z98.42 Cataract extraction status, left eye; Z96.1 Presence of intraocular lens; Z79.02 Long term (current) use of antithrombotics/antiplatelets; Z79.899 Other long term (current) drug therapy
CPT/HCPCS: 36415; 71020; 71275; 80053; 80061; 82272; 82550; 82553; 83735; 84484; 85025; 85379; 85610; 85730; 93005; 93306; 93970; 96365; 96366; 96376; 99285

== ENCOUNTER 2017-10-15 09:06 | Emergency (ER) | payer MEDICARE ==
[2017-10-15] MEDS ORDERED: HYDROcodone/APAP 7.5-325MG 1 EACH TAB PO ONE (09:27)
--- NOTE | 2017-10-15 09:29 | ED ---
General Adult HPI - General Chief complaint: Back Pain/Injury Stated complaint: Hip/Back Pain Time Seen by Provider: 10/15/17 09:18 Source: patient, RN notes reviewed Mode of arrival: wheelchair Limitations: no limitations - History of Present Illness Initial comments: This an 86-year-old male presents emergency Department chief complaint left hip and back pain. Patient states she's had pain for a long period time states it' s worse over the last few days. Son brings the patient in today states that last admitted pain like this he had a blood clot in his left leg. Patient denies any swelling. Patient states that he does take Coumadin daily basis. Patient states that his pain is better when he sitting and laying down but states since he stands up and put any weight on his left hip he has increased pain. Patient states she's never had any evaluation of his left hip the past he does take pain medication for his chronic back issues. Patient denies any abdominal pain denies nausea vomiting diarrhea constipation. Denies any chest pain or shortness of breath. Patient denies any lower extremity paresthesias. - Related Data Home Medications Medication Instructions Recorded Confirmed Warfarin [Coumadin] 2.5 mg PO Q48H 10/15/17 10/15/17 Warfarin [Coumadin] 5 mg PO Q48H 10/15/17 10/15/17 Allergies Allergy/AdvReac Type Severity Reaction Status Date / Time No Known Allergies Allergy Verified 10/15/17 09:25 Review of Systems ROS Statement: Those systems with pertinent positive or pertinent negative responses have been documented in the HPI. ROS Other: All systems not noted in ROS Statement are negative. Past Medical History Past Medical History: Cancer, Hyperlipidemia Additional Past Medical History / Comment(s): BILATERAL GLAUCOMA, TIAS X2, PROSTATE CANCER WITH SURGERY/RADIATION. History of Any Multi-Drug Resistant Organisms: None Reported Past Surgical History: Appendectomy, Cholecystectomy, Prostate Surgery Additional Past Surgical History / Comment(s): PROSTATECTOMY, COLONOSCOPY, BILATERAL CATARACT REMOVAL WITH LENS IMPLANTS. Past Anesthesia/Blood Transfusion Reactions: No Reported Reaction Past Psychological History: No Psychological Hx Reported Smoking Status: Former smoker Past Alcohol Use History: None Reported Past Drug Use History: None Reported - Past Family History Father Family Medical History: No Reported History Additional Family Medical History / Comment(s): FATHER WAS HEALTHY AND LIVED TO BE IN HIS 90'S Mother Family Medical History: Cancer Additional Family Medical History / Comment(s): MOTHER HAD SPINAL CANCER AND AT THE AGE OF 68YRS. General Exam Limitations: no limitations General appearance: alert, in no apparent distress Head exam: Present: atraumatic, normocephalic, normal inspection Neck exam: Present: normal inspection. Absent: tenderness, meningismus, lymphadenopathy Respiratory exam: Present: normal lung sounds bilaterally. Absent: respiratory distress, wheezes, rales, rhonchi, stridor Cardiovascular Exam: Present: regular rate, normal rhythm, normal heart sounds. Absent: systolic murmur, diastolic murmur, rubs, gallop, clicks GI/Abdominal exam: Present: soft, normal bowel sounds. Absent: distended, tenderness, guarding, rebound, rigid Extremities exam: Present: other (Mild tenderness with palpation the left hip, no pain with passive range of motion there is pain with weightbearing, mild tenderness to left posterior buttocks region leg is neurovascularly intact no swelling: Equal warmth) Back exam: Present: full ROM, tenderness (Left low back), paraspinal tenderness. Absent: vertebral tenderness Neurological exam: Present: reflexes normal. Absent: motor sensory deficit Skin exam: Present: warm, dry, intact, normal color. Absent: rash Course Vital Signs 10/15/17 10/15/17 09:08 10:46 Temperature 96.9 F L Pulse Rate 72 Respiratory 16 Rate Blood Pressure 121/84 136/63 O2 Sat by Pulse 96 Oximetry Medical Decision Making - Medical Decision Making 86-year-old male presented for left hip low back pain. There are concerns about possible DVT ultrasound shows no acute DVT in the left leg. Patient has pain with range of motion way. This is some arthritic pain special based on x- rays of the left hip and lumbar spine. I did offer him pain medication but states that he has Prescription of pain medication he'll follow up with his primary care physician for any worsening symptoms. She has no bowel bladder incontinence or retention. - Lab Data Result diagrams: 10/15/17 09:40 10/15/17 09:40 Lab Results 10/15/17 10/15/17 10/15/17 Range/Units 09:40 09:40 09:40 WBC 6.3 (3.8-10.6) k/uL RBC 4.56 (4.30-5.90) m/uL Hgb 14.5 (13.0-17.5) gm/dL Hct 41.9 (39.0-53.0) % MCV 91.8 (80.0-100.0) fL MCH 31.8 (25.0-35.0) pg MCHC 34.6 (31.0-37.0) g/dL RDW 12.8 (11.5-15.5) % Plt Count 179 (150-450) k/uL Neutrophils % 64 % Lymphocytes % 24 % Monocytes % 5 % Eosinophils % 6 % Basophils % 1 % Neutrophils # 4.0 (1.3-7.7) k/uL Lymphocytes # 1.5 (1.0-4.8) k/uL Monocytes # 0.3 (0-1.0) k/uL Eosinophils # 0.4 (0-0.7) k/uL Basophils # 0.1 (0-0.2) k/uL PT 18.3 H (9.0-12.0) sec INR 1.9 H (<1.2) APTT 28.1 (22.0-30.0) sec Sodium 141 (137-145) mmol/L Potassium 4.2 (3.5-5.1) mmol/L Chloride 109 H (98-107) mmol/L Carbon Dioxide 23 (22-30) mmol/L Anion Gap 9 mmol/L BUN 20 (9-20) mg/dL Creatinine 1.36 H (0.66-1.25) mg/dL Est GFR (MDRD) Af Amer >60 (>60 ml/min/1.73 sqM) Est GFR (MDRD) Non-Af 50 (>60 ml/min/1.73 sqM) Glucose 136 H (74-99) mg/dL Calcium 8.7 (8.4-10.2) mg/dL Total Bilirubin 0.7 (0.2-1.3) mg/dL AST 18 (17-59) U/L ALT 26 (21-72) U/L Alkaline Phosphatase 90 (38-126) U/L Total Protein 6.4 (6.3-8.2) g/dL Albumin 3.3 L (3.5-5.0) g/dL Disposition Clinical Impression: Left hip pain, Low back pain Disposition: HOME SELF-CARE Condition: Stable Instructions: Chronic Back Pain (ED) Additional Instructions: Please return to the Emergency Department if symptoms worsen or any other concerns. Referrals: Sophia Caraballo DO [Primary Care Provider] - 1-2 days Time of Disposition: 10:57
[2017-10-15 10:02] LABS: Basophils # (A) 0.1 k/uL (0-0.2); Basophils % (A) 1 %; CH 32.5; CHCM 35.6; Eosinophils # (A) 0.4 k/uL (0-0.7); Eosinophils % (A) 6 %; HCT 41.9 % (39.0-53.0); HDW 2.98; HGB 14.5 gm/dL (13.0-17.5); Luc % (Auto) 2; Lymphocytes # (A) 1.5 k/uL (1.0-4.8); Lymphocytes % (A) 24 %; MCH 31.8 pg (25.0-35.0); MCHC 34.6 g/dL (31.0-37.0); MCV 91.8 fL (80.0-100.0); Mean Platelet Volume 6.9; Monocytes # (A) 0.3 k/uL (0-1.0); Monocytes % (A) 5 %; Neutrophils % (A) 64 %; RBC 4.56 m/uL (4.30-5.90); RDW 12.8 % (11.5-15.5); WBC 6.3 k/uL (3.8-10.6); WBC (Perox) 6.57
[2017-10-15 10:10] LABS: Partial Thromboplastin Time 28.1 sec (22.0-30.0)
[2017-10-15 10:12] LABS: INR 1.9 (<1.2); Prothrombin Time 18.3 sec (9.0-12.0)
--- NOTE | 2017-10-15 10:16 | XR ---
EXAMINATION TYPE: XR Hip LT and AP Pelvis DATE OF EXAM: 10/15/2017 COMPARISON: NONE HISTORY: History of prostate cancer with chronic pelvic and left hip pain TECHNIQUE: A single AP view of the pelvis is obtained. Two views of the left hip are obtained. FINDINGS: There is no acute fracture/dislocation evident in the pelvis. The sacroiliac joints appea r symmetric and unremarkable. Numerous surgical clips bilateral pelvis are noted. There is mild to mo derate axial joint space loss with mild acetabular spurring in both hips. Two views of left hip show no acute fracture or dislocation. No focal lytic or sclerotic lesion seen in the proximal left femur. The overlying soft tissue is unremarkable. IMPRESSION: There is no acute fracture or dislocation in the pelvis or left hip.
--- NOTE | 2017-10-15 10:17 | XR ---
EXAMINATION TYPE: XR lumbar spine 2 or 3V DATE OF EXAM: 10/15/2017 CLINICAL HISTORY: Low back pain TECHNIQUE: Frontal and lateral images of the lumbar spine are obtained. COMPARISON: None FINDINGS: There are 5 lumbar type vertebral bodies identified. The lumbar spine shows satisfactory alignment without evidence of acute fracture or dislocation. There is mild disc space narrowing poste riorly at L5-S1 level. Vertebral body heights and disk space heights otherwise are within normal limi ts. There is mild to moderate multilevel anterior and lateral spurring. Spinous process hypertrophy and facet arthropathy lower lumbar levels. Vascular calcification of overlying abdominal aorta is see n. IMPRESSION: As above.
[2017-10-15 10:23] LABS: ALT 26 U/L (21-72); AST 18 U/L (17-59); Alkaline Phosphatase 90 U/L (38-126); Anion Gap 9 mmol/L; Blood Urea Nitrogen 20 mg/dL (9-20); Calcium 8.7 mg/dL (8.4-10.2); Carbon Dioxide 23 mmol/L (22-30); Chloride 109 mmol/L (98-107); Glucose 136 mg/dL (74-99); Non-African American GFR(MDRD) 50 (>60 ml/min/1.73 sqM); Potassium 4.2 mmol/L (3.5-5.1); Sodium 141 mmol/L (137-145); Total Bilirubin 0.7 mg/dL (0.2-1.3); Total Protein 6.4 g/dL (6.3-8.2)
--- NOTE | 2017-10-15 10:50 | US ---
EXAMINATION TYPE: US venous doppler duplex LE LT DATE OF EXAM: 10/15/2017 10:40 AM COMPARISON: Prior bilateral venous ultrasound February 28, 2017 CLINICAL HISTORY: Pain. EC patient with left lateral hip pain x several years; prior PE 2017 per fami ly member; taking Coumadin SIDE PERFORMED: Left TECHNIQUE: The lower extremity deep venous system is examined utilizing real time linear array sonog dilan with graded compression, doppler sonography and color-flow sonography. VESSELS IMAGED: Common Femoral Vein Deep Femoral Vein Greater Saphenous Vein * Femoral Vein Popliteal Vein Small Saphenous Vein * Proximal Calf Veins (* superficial vessels) Left Leg: Wall echoes are noted at lower Femoral Vein behind valve site at dilated vein, but venous flow is present, and leg is otherwise negative for DVT. Satisfactory compression is visualized. IMPRESSION: No ultrasound evidence for acute DVT in left lower extremity on today's study
[2017-10-15 11:11] VITALS: BP 119/58; PULSE 53; RESP 17; TEMP 98
[2017-10-15 11:28] LABS: Appearance,Urine Cloudy (Clear); Bacteria,Urine Many /hpf; Bilirubin,Urine Negative (Negative); Glucose,Urine (UA) Negative (Negative); Ketones,Urine Negative (Negative); Leukocyte Esterase,Urine Large (Negative); Nitrite,Urine Positive (Negative); Particle Count 8814; Protein,Urine Negative (Negative); RBC,Urine 4 /hpf (0-5); Specific Gravity,Urine 1.013 (1.001-1.035); UA Billing (MACRO vs. MICRO) MICRO; Urobilinogen,Urine <2.0 mg/dL (<2.0); WBC,Urine 48 /hpf (0-5)
== END 2017-10-15 11:15 | disposition home or self-care (01) ==
LOC: EC 09:06
DX: M25.552 Pain in left hip (principal); M54.5 Low back pain; Z85.46 Personal history of malignant neoplasm of prostate; Z87.891 Personal history of nicotine dependence; Z79.01 Long term (current) use of anticoagulants
CPT/HCPCS: 36415; 72100; 73502; 80053; 81001; 85025; 85610; 85730; 99284

== ENCOUNTER 2017-11-21 15:16 | Inpatient (IN) | payer MEDICARE ==
[2017-11-21] MEDS ORDERED: SODIUM CHLORIDE 0.9% 500 ML IV ONE (16:45)
--- NOTE | 2017-11-21 16:58 | ED ---
General Adult HPI - General Chief complaint: Upper Respiratory Infection Stated complaint: Flu like symtoms Time Seen by Provider: 11/21/17 16:38 Source: patient Mode of arrival: wheelchair Limitations: no limitations - History of Present Illness Initial comments: Patient is an 86-year-old male who presents with a chief complaint of flulike symptoms 2 days. Patient was seen by his primary care doctor who wanted him to go to the emergency department. 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 He takes Coumadin daily. The patient states that he feels drained of energy, and has a cough. Patient states that he is "achy from his toes to the top of his head". Patient cannot identify any inciting incidences. He denies sick contacts. There are no aggravating or alleviating factors. Timing is constant. - Related Data Home Medications Medication Instructions Recorded Confirmed Warfarin [Coumadin] 2.5 mg PO Q48H 10/15/17 11/21/17 Warfarin [Coumadin] 5 mg PO Q48H 10/15/17 11/21/17 Allergies Allergy/AdvReac Type Severity Reaction Status Date / Time No Known Allergies Allergy Verified 11/21/17 17:03 Review of Systems ROS Statement: Those systems with pertinent positive or pertinent negative responses have been documented in the HPI. ROS Other: All systems not noted in ROS Statement are negative. Constitutional: Reports: chills ENT: Reports: throat pain Respiratory: Reports: cough Endocrine: Reports: fatigue Gastrointestinal: Reports: nausea, vomiting, diarrhea Past Medical History Past Medical History: Cancer, CVA/TIA, Hyperlipidemia Additional Past Medical History / Comment(s): BILATERAL GLAUCOMA, TIAS X2, PROSTATE CANCER WITH SURGERY/RADIATION. History of Any Multi-Drug Resistant Organisms: None Reported Past Surgical History: Appendectomy, Cholecystectomy, Prostate Surgery Additional Past Surgical History / Comment(s): PROSTATECTOMY, COLONOSCOPY, BILATERAL CATARACT REMOVAL WITH LENS IMPLANTS. Past Anesthesia/Blood Transfusion Reactions: No Reported Reaction Past Psychological History: No Psychological Hx Reported Smoking Status: Former smoker Past Alcohol Use History: None Reported Past Drug Use History: None Reported - Past Family History Father Family Medical History: No Reported History Additional Family Medical History / Comment(s): FATHER WAS HEALTHY AND LIVED TO BE IN HIS 90'S Mother Family Medical History: Cancer Additional Family Medical History / Comment(s): MOTHER HAD SPINAL CANCER AND AT THE AGE OF 68YRS. General Exam Limitations: no limitations General appearance: alert, in no apparent distress Head exam: Present: atraumatic, normocephalic Eye exam: Present: normal appearance ENT exam: Present: mucous membranes moist Neck exam: Present: lymphadenopathy Respiratory exam: Present: decreased breath sounds Cardiovascular Exam: Present: regular rate, normal rhythm GI/Abdominal exam: Present: soft. Absent: distended, tenderness Extremities exam: Present: pedal edema (Very mild) Neurological exam: Present: alert, oriented X3 Psychiatric exam: Present: normal affect, normal mood Skin exam: Present: warm, dry, intact Course Vital Signs 11/21/17 11/21/17 15:22 17:22 Temperature 98.4 F Pulse Rate 86 Respiratory 17 20 Rate Blood Pressure 120/56 O2 Sat by Pulse 94 L Oximetry Medical Decision Making - Medical Decision Making Patient presents with a chief complaint flulike symptoms and generalized fatigue. He will have a basic cardiac workup. Chest x-ray and influenza PCR was ordered. EKG performed at 1704 shows normal sinus rhythm with a right bundle branch block. Ventricular rate is 82 bpm. When compared to study performed on 02/28/2017, EKGs appear similar. 7:10 PM Lab evaluation this patient is unremarkable including negative influenza PCR. I discussed the results with the patient and his son. I discussed discharge however neither of them seemed comfortable with this option. I have related the patient found that he is very unsteady and does not have 24-hour supervision at home. I discussed this case with Dr. Agee who accepts admission of this patient for observation. At this time, patient remained stable. Patient is on her Chandrika this care plan. - Lab Data Result diagrams: 11/21/17 17:12 11/21/17 17:12 Lab Results 11/21/17 11/21/17 11/21/17 Range/Units 17:12 17:12 17:12 WBC 8.1 (3.8-10.6) k/uL RBC 5.01 (4.30-5.90) m/uL Hgb 15.6 (13.0-17.5) gm/dL Hct 46.2 (39.0-53.0) % MCV 92.2 (80.0-100.0) fL MCH 31.2 (25.0-35.0) pg MCHC 33.8 (31.0-37.0) g/dL RDW 14.3 (11.5-15.5) % Plt Count 140 L (150-450) k/uL Neutrophils % 83 % Lymphocytes % 8 % Monocytes % 5 % Eosinophils % 3 % Basophils % 1 % Neutrophils # 6.7 (1.3-7.7) k/uL Lymphocytes # 0.7 L (1.0-4.8) k/uL Monocytes # 0.4 (0-1.0) k/uL Eosinophils # 0.2 (0-0.7) k/uL Basophils # 0.1 (0-0.2) k/uL PT (9.0-12.0) sec INR (<1.2) Sodium 140 (137-145) mmol/L Potassium 4.3 (3.5-5.1) mmol/L Chloride 106 (98-107) mmol/L Carbon Dioxide 25 (22-30) mmol/L Anion Gap 9 mmol/L BUN 16 (9-20) mg/dL Creatinine 1.27 H (0.66-1.25) mg/dL Est GFR (MDRD) Af Amer >60 (>60 ml/min/1.73 sqM) Est GFR (MDRD) Non-Af 54 (>60 ml/min/1.73 sqM) Glucose 111 H (74-99) mg/dL Calcium 9.0 (8.4-10.2) mg/dL Total Bilirubin 1.2 (0.2-1.3) mg/dL AST 41 (17-59) U/L ALT 52 (21-72) U/L Alkaline Phosphatase 111 (38-126) U/L Troponin I (0.000-0.034) ng/mL Total Protein 6.6 (6.3-8.2) g/dL Albumin 3.7 (3.5-5.0) g/dL Influenza Type A RNA Not Detected (Not Detectd) Influenza Type B (PCR) Not Detected (Not Detectd) 11/21/17 11/21/17 Range/Units 17:12 17:12 WBC (3.8-10.6) k/uL RBC (4.30-5.90) m/uL Hgb (13.0-17.5) gm/dL Hct (39.0-53.0) % MCV (80.0-100.0) fL MCH (25.0-35.0) pg MCHC (31.0-37.0) g/dL RDW (11.5-15.5) % Plt Count (150-450) k/uL Neutrophils % % Lymphocytes % % Monocytes % % Eosinophils % % Basophils % % Neutrophils # (1.3-7.7) k/uL Lymphocytes # (1.0-4.8) k/uL Monocytes # (0-1.0) k/uL Eosinophils # (0-0.7) k/uL Basophils # (0-0.2) k/uL PT 17.5 H (9.0-12.0) sec INR 1.9 H (<1.2) Sodium (137-145) mmol/L Potassium (3.5-5.1) mmol/L Chloride (98-107) mmol/L Carbon Dioxide (22-30) mmol/L Anion Gap mmol/L BUN (9-20) mg/dL Creatinine (0.66-1.25) mg/dL Est GFR (MDRD) Af Amer (>60 ml/min/1.73 sqM) Est GFR (MDRD) Non-Af (>60 ml/min/1.73 sqM) Glucose (74-99) mg/dL Calcium (8.4-10.2) mg/dL Total Bilirubin (0.2-1.3) mg/dL AST (17-59) U/L ALT (21-72) U/L Alkaline Phosphatase (38-126) U/L Troponin I <0.012 (0.000-0.034) ng/mL Total Protein (6.3-8.2) g/dL Albumin (3.5-5.0) g/dL Influenza Type A RNA (Not Detectd) Influenza Type B (PCR) (Not Detectd) Disposition Clinical Impression: Common cold, Unsteady gait, Debility Disposition: HOME SELF-CARE Condition: Good Instructions: Upper Respiratory Infection (ED) Referrals: Sophia Caraballo DO [Primary Care Provider] - 1-2 days Decision to Admit Reason: Admit from EC - Out of Hospital Transfer - Req. Specs Out of Hospital Transfer - Requested Specifics: Other Non-Acute
[2017-11-21 17:26] LABS: Basophils # (A) 0.1 k/uL (0-0.2); Basophils % (A) 1 %; Eosinophils # (A) 0.2 k/uL (0-0.7); Eosinophils % (A) 3 %; HCT 46.2 % (39.0-53.0); HGB 15.6 gm/dL (13.0-17.5); Lymphocytes # (A) 0.7 k/uL (1.0-4.8); Lymphocytes % (A) 8 %; MCH 31.2 pg (25.0-35.0); MCHC 33.8 g/dL (31.0-37.0); MCV 92.2 fL (80.0-100.0); Mean Platelet Volume 6.8; Monocytes # (A) 0.4 k/uL (0-1.0); Monocytes % (A) 5 %; Neutrophils # (A) 6.7 k/uL (1.3-7.7); Neutrophils % (A) 83 %; Platelet Count 140 k/uL (150-450); RBC 5.01 m/uL (4.30-5.90); RDW 14.3 % (11.5-15.5); WBC 8.1 k/uL (3.8-10.6)
[2017-11-21 17:35] LABS: INR 1.9 (<1.2); Prothrombin Time 17.5 sec (9.0-12.0)
--- NOTE | 2017-11-21 17:45 | XR ---
EXAMINATION TYPE: XR chest 2V DATE OF EXAM: 11/21/2017 COMPARISON: 03/13/2017 HISTORY: Cough TECHNIQUE: Frontal and lateral views of the chest are obtained. FINDINGS: There is no heart failure nor confluent pneumonic infiltrate. Costophrenic angles are ty r. Thoracic aorta is atheromatous. There are chest leads. IMPRESSION: No active cardiopulmonary disease. There are some linear density in the anterior right u pper lobe consistent with scarring that is unchanged compared to old exam.
[2017-11-21 17:46] LABS: ALT 52 U/L (21-72); AST 41 U/L (17-59); Albumin 3.7 g/dL (3.5-5.0); Alkaline Phosphatase 111 U/L (38-126); Anion Gap 9 mmol/L; Blood Urea Nitrogen 16 mg/dL (9-20); Carbon Dioxide 25 mmol/L (22-30); Chloride 106 mmol/L (98-107); Glucose 111 mg/dL (74-99); Potassium 4.3 mmol/L (3.5-5.1); Sodium 140 mmol/L (137-145); Total Bilirubin 1.2 mg/dL (0.2-1.3); Total Protein 6.6 g/dL (6.3-8.2)
[2017-11-21] MEDS ORDERED: IBUPROFEN 400 MG TAB PO PRN (19:06)
[2017-11-21] MEDS ORDERED: NALOXONE 0.4 MG/ML 1 ML VIAL IV PRN ×2 (19:06→21:47)
[2017-11-21] MEDS: ACETAMINOPHEN TAB 325 MG TAB PO PRN (19:52)
[2017-11-21] MEDS ORDERED: DOCUSATE 100 MG CAP PO PRN (21:47)
[2017-11-21] MEDS ORDERED: ONDANSETRON 4 MG/2 ML VIAL IVP PRN (21:47)
[2017-11-21] MEDS ORDERED: BENZOCAINE/MENTHOL LOZENG 1 EACH LOZENGE MUCOUS MEM PRN (21:47)
[2017-11-21] MEDS ORDERED: MELATONIN 3 MG TABLET PO PRN (21:47)
[2017-11-21] MEDS ORDERED: CALCIUM CARBONATE 500 MG CHEWABLE PO PRN (21:47)
--- NOTE | 2017-11-21 22:03 | P.HPIM ---
History of Present Illness H&P Date: 11/21/17 (delayed charting patient seen at 1999) Chief Complaint: cough Patient is an 86-year-old male past medical history of stroke with residual left-sided weakness, high cholesterol, glaucoma, and prior pulmonary embolism who presented to the emergency department at the direction of his primary care physician after 2 days of flulike symptoms. In the ER he underwent an extensive evaluation. His initial vital signs were within normal limits. Chest x-ray revealed no acute process. Initial laboratory analysis was essentially unremarkable other than a creatinine of 1.27 which appears to be at baseline for him. Influenza nasal swab was negative. He was given a liter of fluids. They attempted to ambulate him in the ER but he was too weak to ambulate and they were concerned about impending sepsis and therefore requested admission for observation. Patient is seen and examined at bedside. He complains of a nonproductive cough for the last 2 days associated with rhinorrhea, and a sore throat. He also reports chills. He has had decreased appetite. He is having some chest pain with his cough. He had diarrhea 2 today. He has overall been feeling fatigued and weak. He denies any significant fevers, nausea, vomiting, and dysuria. He has not recently started or stopped any new medications. Review of Systems Pertinent positives and negatives as per HPI, all other 12 point review of systems is negative Past Medical History Past Medical History: Cancer, CVA/TIA, Hyperlipidemia, Pulmonary Embolus (PE) Additional Past Medical History / Comment(s): BILATERAL GLAUCOMA, TIA, CVA with residula left sided weakness, PROSTATE CANCER had SURGERY/RADIATION, upper front bridge History of Any Multi-Drug Resistant Organisms: None Reported Past Surgical History: Appendectomy, Cholecystectomy, Prostate Surgery Additional Past Surgical History / Comment(s): PROSTATECTOMY, COLONOSCOPY small polyp removed-benign, BILATERAL CATARACT REMOVAL WITH LENS IMPLANTS. Past Anesthesia/Blood Transfusion Reactions: No Reported Reaction Smoking Status: Former smoker Past Alcohol Use History: None Reported Past Drug Use History: None Reported Additional History: Lives with sone, uses a cane - Past Family History Father Family Medical History: No Reported History Additional Family Medical History / Comment(s): FATHER WAS HEALTHY AND LIVED TO BE IN HIS 90'S Mother Family Medical History: Cancer Additional Family Medical History / Comment(s): MOTHER HAD SPINAL CANCER AND AT THE AGE OF 68YRS. Medications and Allergies Home Medications Medication Instructions Recorded Confirmed Type Warfarin [Coumadin] 2.5 mg PO Q48H 10/15/17 11/21/17 History Warfarin [Coumadin] 5 mg PO Q48H 10/15/17 11/21/17 History Allergies Allergy/AdvReac Type Severity Reaction Status Date / Time No Known Allergies Allergy Verified 11/21/17 17:03 Physical Exam Osteopathic Statement: *. No significant issues noted on an osteopathic structural exam other than those noted in the History and Physical/Consult. Vitals: Vital Signs Temp Pulse Resp BP Pulse Ox 11/21/17 21:30 98 F 85 16 125/67 98 11/21/17 19:55 99 F 80 18 140/87 95 11/21/17 19:47 99.1 F 83 20 135/84 95 11/21/17 17:22 20 11/21/17 15:22 98.4 F 86 17 120/56 94 L Intake and Output 11/21/17 11/21/17 11/21/17 06:59 14:59 22:59 Other: Weight 92.986 kg Patient Weight 11/22/17 06:59 Weight 92.986 kg General: Ill-appearing, no distress, appears at stated age, normal weight Derm: Decreased skin turgor, no unusual rashes/lesions no unusual ecchymoses, warm, dry Head: atraumatic, normocephalic, symmetric Eyes: EOMI, no lid lag, anicteric sclera, pupils equal round reactive to light ENT: Nose and ears atraumatic, no thrush, + pharyngeal erythema] Neck: No thyromegaly, no cervical lymphadenopathy, trachea midline, supple Mouth: no lip lesion, mucus membranes dry Cardiovascular: S1S2 reg, no murmur, positive posterior tibial pulse bilateral, no edema, capillary refill less than 2 seconds Lungs: Decreased breath sounds bilateral bases, no rhonchi, no rales , no accessory muscle use Abdominal: soft, nontender to palpation, no guarding, no appreciable organomegaly, normal bowel sounds Ext: no gross muscle atrophy, muscle strength 5 out of 5 in right upper extremity and right lower extremity, muscle strength 4 out of 5 in left upper extremity, muscle strength 3 out of 5 in left lower extremity, no contractures, Neuro: CN II-XI grossly intact, light touch intact all 4 extremities, finger to nose within normal limits, Psych: Alert, oriented, appropriate affect Results CBC & Chem 7: 11/21/17 17:12 11/21/17 17:12 Labs: Abnormal Lab Results - Last 24 Hours (Table) 11/21/17 11/21/17 11/21/17 Range/Units 17:12 17:12 17:12 Plt Count 140 L (150-450) k/uL Lymphocytes # 0.7 L (1.0-4.8) k/uL PT 17.5 H (9.0-12.0) sec INR 1.9 H (<1.2) Creatinine 1.27 H (0.66-1.25) mg/dL Glucose 111 H (74-99) mg/dL Comments: EKG is reviewed by myself reveals normal at a rate of 82 right bundle branch block which appears on prior EKG from February 2017 Chest x-ray: report reviewed, image reviewed Thrombosis Risk Factor Assmnt - DVT/VTE Prophylaxis DVT/VTE Prophylaxis: Pharmacologic Prophylaxis ordered - Choose All That Apply Any of the Below Risk Factors Present?: Yes Assessment and Plan Assessment: Clinical dehydration -IV fluids -Repeat basic metabolic profile in a.m. Acute viral illness with concerns for impending sepsis -Supportive care with cough drops, as needed albuterol inhaler, Claritin, and Flonase -Repeat CBC in a.m. to ensure that patient does not have an elevated white blood cell count and -Monitor fever profile CKD 3 - at baseline Generalized weakness -Physical therapy evaluation in a.m. History of pulmonary embolism was slightly subtherapeutic Coumadin coagulopathy -Coumadin management per pharmacy services Cerebrovascular accident with residual left-sided weakness -Was taken off of Plavix when started on warfarin Surrogate decision-maker: Leo Paredes CODE STATUS:DNR- patient states that son is aware DVT prophylaxis: on coumadin Discussed with: patient, ED physician Anticipated discharge: [address]: home ? home health A total of 60 minutes was spent on the care of this complex patient more than 50 % of the time was spent in counseling and care coordination.
[2017-11-21] MEDS: LORATADINE 10 MG TAB PO SCH (22:37)
[2017-11-21] MEDS: SODIUM CHLORIDE 0.9% 1,000 ML IV SCH (22:37)
[2017-11-22] MEDS: BENZONATATE 100 MG CAP PO PRN ×2 (03:20→23:01)
[2017-11-22 07:23] LABS: HCT 37.2 % (39.0-53.0); HGB 12.7 gm/dL (13.0-17.5); MCH 31.5 pg (25.0-35.0); MCHC 34.2 g/dL (31.0-37.0); MCV 92.2 fL (80.0-100.0); Mean Platelet Volume 6.5; Platelet Count 130 k/uL (150-450); RBC 4.03 m/uL (4.30-5.90); RDW 13.1 % (11.5-15.5); WBC 5.9 k/uL (3.8-10.6)
[2017-11-22 07:28] LABS: Prothrombin Time 18.5 sec (9.0-12.0)
[2017-11-22 07:32] LABS: ALT 46 U/L (21-72); AST 30 U/L (17-59); Albumin 2.9 g/dL (3.5-5.0); Alkaline Phosphatase 86 U/L (38-126); Anion Gap 6 mmol/L; Blood Urea Nitrogen 16 mg/dL (9-20); Carbon Dioxide 24 mmol/L (22-30); Chloride 109 mmol/L (98-107); Glucose 106 mg/dL (74-99); Sodium 139 mmol/L (137-145); Total Bilirubin 0.7 mg/dL (0.2-1.3); Total Protein 5.4 g/dL (6.3-8.2)
[2017-11-22] MEDS: LORATADINE 10 MG TAB PO SCH (07:50)
[2017-11-22] MEDS: FLUTICASONE 50MCG/SPRAY NASAL 16GM EA NOSTRIL SCH (07:59)
--- NOTE | 2017-11-22 10:41 | P.PN ---
Objective - Vital Signs Vital signs: Vital Signs Temp 98.2 F 11/22/17 07:00 Pulse 67 11/22/17 07:00 Resp 18 11/22/17 07:00 BP 106/55 11/22/17 07:00 Pulse Ox 90 L 11/22/17 07:00 Intake & Output 11/21/17 11/22/17 11/22/17 18:59 06:59 18:59 Output Total 100 Balance -100 Weight 92.986 kg 92.986 kg Output: Urine 100 Other: Voiding Method Toilet # Voids 1 - Exam Constitutional: No acute distress, conversant, pleasant Eyes: Anicteric sclerae, moist conjunctiva, no lid-lag, PERRLA ENMT: NC/AT,Oropharynx clear, no erythema, exudates Neck:Supple, FROM, no masses, or JVD, No carotid bruits; No thyromegaly Lungs: Clear to auscultation, Clear to percussion, Normal respiratory effort, no accessory muscle use Cardiovascular: Heart regular in rate and rhythm, No murmurs, gallops, or rubs no peripheral edema Abdominal: Soft Nontender, nom distended, no guarding, no rebound or rigidity, Normoactive bowel sounds No hepatomegaly, No splenomegaly, No palpable mass No abdominal wall hernia noted Skin: Normal temperature, tone, texture, turgor, No induration No subcutaneous nodules, No rash, lesions, No ulcers Extremities:No digital cyanosis No clubbing, Pedal pulses intact and symmetrical Radial pulses intact and symmetrical, Ext: no gross muscle atrophy, muscle strength 5 out of 5 in right upper extremity and right lower extremity , muscle strength 4 out of 5 in left upper extremity, muscle strength 3 out of 5 in left lower extremity, no contractures, Psychiatric: Alert and oriented to person, place and time, Appropriate affect Intact judgement Neuro: Sensation to light touch grossly present throughout, Cranial nerves II- XII grossly intact. No focal sensory deficits - Labs CBC & Chem 7: 11/22/17 06:43 11/22/17 06:43 Labs: Abnormal Lab Results - Last 24 Hours (Table) 11/21/17 11/21/17 11/21/17 Range/Units 17:12 17:12 17:12 RBC (4.30-5.90) m/uL Hgb (13.0-17.5) gm/dL Hct (39.0-53.0) % Plt Count 140 L (150-450) k/uL Lymphocytes # 0.7 L (1.0-4.8) k/uL PT 17.5 H (9.0-12.0) sec INR 1.9 H (<1.2) Chloride (98-107) mmol/L Creatinine 1.27 H (0.66-1.25) mg/dL Glucose 111 H (74-99) mg/dL Calcium (8.4-10.2) mg/dL Total Protein (6.3-8.2) g/dL Albumin (3.5-5.0) g/dL 11/22/17 11/22/17 11/22/17 Range/Units 06:43 06:43 06:43 RBC 4.03 L (4.30-5.90) m/uL Hgb 12.7 L (13.0-17.5) gm/dL Hct 37.2 L (39.0-53.0) % Plt Count 130 L (150-450) k/uL Lymphocytes # (1.0-4.8) k/uL PT 18.5 H (9.0-12.0) sec INR 2.0 H (<1.2) Chloride 109 H (98-107) mmol/L Creatinine 1.34 H (0.66-1.25) mg/dL Glucose 106 H (74-99) mg/dL Calcium 8.0 L (8.4-10.2) mg/dL Total Protein 5.4 L (6.3-8.2) g/dL Albumin 2.9 L (3.5-5.0) g/dL Assessment and Plan Assessment: Acute viral illness * -Supportive care with cough drops, as needed albuterol inhaler, Claritin, and Flonase * patient afebrile without leukocytosis CKD 3 - at baseline Generalized weakness/debility * Patient normally ambulatory previously with a cane at home * -Physical therapy recommended likely rehab consultation for placement History of pulmonary embolism was slightly subtherapeutic Coumadin coagulopathy -Coumadin management per pharmacy services Cerebrovascular accident with residual left-sided weakness -Was taken off of Plavix when started on warfarin
[2017-11-22] MEDS: ACETAMINOPHEN TAB 325 MG TAB PO PRN (15:34)
[2017-11-22] MEDS ORDERED: WARFARIN 5 MG TAB PO ONE (18:00)
[2017-11-23] MEDS: SODIUM CHLORIDE 0.9% 1,000 ML IV SCH ×3 (03:03→17:28)
[2017-11-23 03:07] LABS: Appearance,Urine Cloudy (Clear); Bacteria,Urine Rare /hpf; Bilirubin,Urine Negative (Negative); Blood,Urine Small (Negative); Color,Urine Yellow; Glucose,Urine (UA) Negative (Negative); Ketones,Urine Negative (Negative); Leukocyte Esterase,Urine Large (Negative); Mucus,Urine Rare /hpf; Nitrite,Urine Positive (Negative); PH, Urine 5.5 (5.0-8.0); Protein,Urine Trace (Negative); RBC,Urine 8 /hpf (0-5); Specific Gravity,Urine 1.013 (1.001-1.035); Squamous Epithelial Cell,Urine 1 /hpf (0-4); Urobilinogen,Urine <2.0 mg/dL (<2.0); WBC,Urine >182 /hpf (0-5)
[2017-11-23] MEDS ORDERED: LEVOFLOXACIN 750MG-D5W PMX 750 MG in DEXTROSE/WATER 1 150ML.BAG IVPB STA (03:20)
[2017-11-23] MEDS ORDERED: LEVOFLOXACIN 750MG-D5W PMX 750 MG in DEXTROSE/WATER 1 150ML.BAG IVPB ONE (04:00)
[2017-11-23 08:37] LABS: INR 1.6 (<1.2); Prothrombin Time 15.1 sec (9.0-12.0)
[2017-11-23] MEDS: LEVOFLOXACIN 750MG-D5W PMX 750 MG in DEXTROSE/WATER 1 150ML.BAG IVPB SCH (09:06)
[2017-11-23] MEDS: LORATADINE 10 MG TAB PO SCH (09:07)
[2017-11-23] MEDS: FLUTICASONE 50MCG/SPRAY NASAL 16GM EA NOSTRIL SCH (09:07)
[2017-11-23 11:31] LABS: Basophils % (A) 1 %; Eosinophils # (A) 0.1 k/uL (0-0.7); Eosinophils % (A) 3 %; HCT 39.6 % (39.0-53.0); HGB 12.6 gm/dL (13.0-17.5); Lymphocytes # (A) 1.4 k/uL (1.0-4.8); Lymphocytes % (A) 25 %; MCH 30.3 pg (25.0-35.0); MCHC 31.9 g/dL (31.0-37.0); Mean Platelet Volume 7.7; Monocytes # (A) 0.5 k/uL (0-1.0); Monocytes % (A) 9 %; Neutrophils # (A) 3.3 k/uL (1.3-7.7); Neutrophils % (A) 61 %; Platelet Count 110 k/uL (150-450); RBC 4.17 m/uL (4.30-5.90); WBC 5.4 k/uL (3.8-10.6)
--- NOTE | 2017-11-23 11:40 | XR ---
EXAMINATION TYPE: XR chest 1V DATE OF EXAM: 11/23/2017 HISTORY: cough/fever URI . REFERENCE: Previous study dated 11/21/2017. FINDINGS: There is some scarring in the right upper lobe. The lungs are otherwise clear. Pleural spac es are clear. Heart size is upper limits of normal. IMPRESSION: BORDERLINE CARDIOMEGALY.
--- NOTE | 2017-11-23 11:53 | P.PN ---
Subjective Progress Note Date: 11/23/17 Patient feeling a little better today, still pretty weak, PT recommending subacute rehab, patient not amenable to going to rehab or have a referral. Reporting that his son can take care of him at home. Patient apparently febrile overnight, and started on antibiotics Objective - Vital Signs Vital signs: Vital Signs Temp 98.8 F 11/23/17 07:00 Pulse 66 11/23/17 07:00 Resp 18 11/23/17 07:00 BP 118/57 11/23/17 07:00 Pulse Ox 94 L 11/23/17 07:00 Intake & Output 11/22/17 11/23/17 11/23/17 18:59 06:59 18:59 Intake Total 525 1275 Output Total 100 Balance 425 1275 Weight 92.986 kg Intake: Intake, IV Titration 525 1275 Amount Levofloxacin 750Mg-D5w 150 Pmx 750 mg In Dextrose/ Water 1 150ml.bag @ 100 mls/hr IVPB ONCE ONE Rx#: [id number] Sodium Chloride 0.9% 1, 525 1125 000 ml @ 75 mls/hr IV . [id number] [facility] Rx#:[id number] Output: Urine 100 Other: Voiding Method Urinal Urinal # Voids 1 2 - Exam Constitutional: No acute distress, conversant, pleasant Eyes: Anicteric sclerae, moist conjunctiva, no lid-lag, PERRLA ENMT: NC/AT,Oropharynx clear, no erythema, exudates Neck:Supple, FROM, no masses, or JVD, No carotid bruits; No thyromegaly Lungs: Clear to auscultation, Clear to percussion, Normal respiratory effort, no accessory muscle use Cardiovascular: Heart regular in rate and rhythm, No murmurs, gallops, or rubs no peripheral edema Abdominal: Soft Nontender, nom distended, no guarding, no rebound or rigidity, Normoactive bowel sounds No hepatomegaly, No splenomegaly, No palpable mass No abdominal wall hernia noted Skin: Normal temperature, tone, texture, turgor, No induration No subcutaneous nodules, No rash, lesions, No ulcers Extremities:No digital cyanosis No clubbing, Pedal pulses intact and symmetrical Radial pulses intact and symmetrical, Ext: no gross muscle atrophy, muscle strength 5 out of 5 in right upper extremity and right lower extremity , muscle strength 4 out of 5 in left upper extremity, muscle strength 3 out of 5 in left lower extremity, no contractures, Psychiatric: Alert and oriented to person, place and time, Appropriate affect Intact judgement Neuro: Sensation to light touch grossly present throughout, Cranial nerves II- XII grossly intact. No focal sensory deficits - Labs CBC & Chem 7: 11/23/17 08:00 11/22/17 06:43 Labs: Abnormal Lab Results - Last 24 Hours (Table) 11/23/17 11/23/17 11/23/17 Range/Units 02:50 07:31 08:00 RBC 4.17 L (4.30-5.90) m/uL Hgb 12.6 L (13.0-17.5) gm/dL Plt Count 110 L (150-450) k/uL PT 15.1 H (9.0-12.0) sec INR 1.6 H (<1.2) Urine Protein Trace H (Negative) Urine Blood Small H (Negative) Ur Leukocyte Esterase Large H (Negative) Urine RBC 8 H (0-5) /hpf Urine WBC >182 H (0-5) /hpf Urine WBC Clumps Few H (None) /hpf Urine Bacteria Rare H (None) /hpf Urine Mucus Rare H (None) /hpf Assessment and Plan (1) Viral URI Current Visit: Yes Status: Acute Code(s): J06.9 - ACUTE UPPER RESPIRATORY INFECTION, UNSPECIFIED; B97.89 - OTH VIRAL AGENTS THE CAUSE OF DISEASES CLASSD [facility] SNOMED Code(s): 552641230 (2) UTI (urinary tract infection) Narrative/Plan: * patient started on Levaquin * Febrile overnight however CBC is normal, will order urine culture Current Visit: Yes Status: Acute Code(s): N39.0 - URINARY TRACT INFECTION, SITE NOT SPECIFIED SNOMED Code(s): 51505851 (3) Weakness Narrative/Plan: * Continue with physical therapy Current Visit: Yes Status: Acute Code(s): R53.1 - WEAKNESS SNOMED Code(s) : 14387561 (4) Chronic kidney disease (CKD), stage III (moderate) Narrative/Plan: * Creatinine at baseline we'll continue to follow Current Visit: Yes Status: Acute Code(s): N18.3 - CHRONIC KIDNEY DISEASE, STAGE 3 (MODERATE) SNOMED Code(s): 749625109 (5) CVA, old, hemiparesis Current Visit: Yes Status: Acute Code(s): I69.359 - HEMIPLGA FOLLOWING CEREBRAL INFARCTION AFFECTING UNSP SIDE SNOMED Code(s): 759868690 Plan: We'll continue with inpatient physical therapy, his weakness likely precipitated by urinary tract infection and viral URI, continue with IV antibiotics we'll follow up urine cultures.
[2017-11-23] MEDS ORDERED: WARFARIN 5 MG TAB PO ONE (18:00)
[2017-11-24] MEDS: SODIUM CHLORIDE 0.9% 1,000 ML IV SCH ×2 (07:32→21:39)
[2017-11-24] MEDS: LORATADINE 10 MG TAB PO SCH (07:34)
[2017-11-24] MEDS: FLUTICASONE 50MCG/SPRAY NASAL 16GM EA NOSTRIL SCH (07:34)
[2017-11-24] MEDS: LEVOFLOXACIN 750MG-D5W PMX 750 MG in DEXTROSE/WATER 1 150ML.BAG IVPB SCH (07:34)
[2017-11-24 07:41] VITALS: RESP 18
[2017-11-24 08:14] LABS: Anion Gap 8 mmol/L; Blood Urea Nitrogen 16 mg/dL (9-20); Calcium 8.1 mg/dL (8.4-10.2); Carbon Dioxide 22 mmol/L (22-30); Chloride 111 mmol/L (98-107); Glucose 96 mg/dL (74-99); Potassium 3.9 mmol/L (3.5-5.1); Sodium 141 mmol/L (137-145)
[2017-11-24 08:42] LABS: Basophils % (A) 1 %; Eosinophils # (A) 0.2 k/uL (0-0.7); Eosinophils % (A) 3 %; HCT 37.9 % (39.0-53.0); HGB 12.4 gm/dL (13.0-17.5); Lymphocytes # (A) 1.7 k/uL (1.0-4.8); Lymphocytes % (A) 36 %; MCH 30.3 pg (25.0-35.0); MCHC 32.7 g/dL (31.0-37.0); MCV 92.6 fL (80.0-100.0); Mean Platelet Volume 7.3; Monocytes # (A) 0.4 k/uL (0-1.0); Monocytes % (A) 8 %; Neutrophils # (A) 2.3 k/uL (1.3-7.7); Neutrophils % (A) 50 %; Platelet Count 110 k/uL (150-450); RBC 4.09 m/uL (4.30-5.90); RDW 14.3 % (11.5-15.5); WBC 4.6 k/uL (3.8-10.6)
--- NOTE | 2017-11-24 11:34 | P.PN ---
Subjective Progress Note Date: 11/24/17 Principal diagnosis: weakness Patient is an 86-year-old male past medical history of stroke with residual left-sided weakness, high cholesterol, glaucoma, and prior pulmonary embolism who presented to the emergency department at the direction of his primary care physician after 2 days of flulike symptoms. In the ER he underwent an extensive evaluation. His initial vital signs were within normal limits. Chest x-ray revealed no acute process. Initial laboratory analysis was essentially unremarkable other than a creatinine of 1.27 which appears to be at baseline for him. Influenza nasal swab was negative. He was given a liter of fluids. They attempted to ambulate him in the ER but he was too weak to ambulate and they were concerned about impending sepsis and therefore requested admission for observation. His cough worsened and he spiked a fever. Urinalysis was obtained which showed urinary tract infection. He was started on Levaquin. He had continued to have difficulty with ambulation. Physical therapy had recommended possible need for fci, however the patient refuses. Patient seen and examined at bedside. He states his weakness is better and he is almost able to ambulate to the bathroom on his own. He states his cough is still there but is much improved. He feels as though he could do well at home tomorrow but is still feeling too weak to go home today. He tells me that he would consider physical therapy with home health care. He denies any nausea, vomiting, diarrhea, or constipation. Objective - Vital Signs Vital signs: Vital Signs Temp 98.2 F 11/24/17 07:00 Pulse 67 11/24/17 07:00 Resp 18 11/24/17 07:00 BP 109/65 11/24/17 07:00 Pulse Ox 92 L 11/24/17 07:00 Intake & Output 11/23/17 11/24/17 11/24/17 18:59 06:59 18:59 Intake Total 240 1390 Output Total 300 600 Balance -60 790 Intake: Oral 240 1390 Output: Urine 300 600 Other: Voiding Method Urinal Urinal # Voids 3 2 1 - Exam General: non toxic, no distress, appears at stated age Derm: warm, dry Head: atraumatic, normocephalic, symmetric Eyes: EOMI, no lid lag, anicteric sclera Mouth: no lip lesion, mucus membranes moist Cardiovascular: S1S2 reg, no murmur, positive posterior tibial pulse bilateral, Lungs: CTA bilateral, no rhonchi, no rales , no accessory muscle use Abdominal: soft, nontender to palpation, no guarding, no appreciable organomegaly Ext: no gross muscle atrophy, no edema, no contractures Neuro: CN II-XI grossly intact, no focal neuro deficits Psych: Alert, oriented, appropriate affect - Labs CBC & Chem 7: 11/24/17 07:40 11/24/17 07:40 Labs: Abnormal Lab Results - Last 24 Hours (Table) 11/23/17 11/24/17 11/24/17 Range/Units 08:00 07:40 07:40 RBC 4.17 L 4.09 L (4.30-5.90) m/uL Hgb 12.6 L 12.4 L (13.0-17.5) gm/dL Hct 37.9 L (39.0-53.0) % Plt Count 110 L 110 L (150-450) k/uL Chloride 111 H (98-107) mmol/L Creatinine 1.27 H (0.66-1.25) mg/dL Calcium 8.1 L (8.4-10.2) mg/dL Assessment and Plan Assessment: UTI, present on admission - levaquin X 1 days - unfortunately, urine culture was not sent Acute viral illness with concerns for impending sepsis -Supportive care with cough drops, as needed albuterol inhaler, Claritin, and Flonase CKD 3 - at baseline Generalized weakness -Physical therapy History of pulmonary embolism was slightly subtherapeutic Coumadin coagulopathy -Coumadin management per pharmacy services Cerebrovascular accident with residual left-sided weakness -Was taken off of Plavix when started on warfarin Clinical dehydration, resolved DVT prophylaxis: on coumadin Discussed with: patient, Anticipated discharge: [address]: home ? home health A total of 35 minutes was spent on the care of this complex patient more than 50 % of the time was spent in counseling and care coordination.
[2017-11-24 12:01] LABS: INR 1.7 (<1.2)
[2017-11-24] MEDS ORDERED: WARFARIN 5 MG TAB PO ONE (18:00)
[2017-11-25] MEDS: FLUTICASONE 50MCG/SPRAY NASAL 16GM EA NOSTRIL SCH (07:17)
[2017-11-25] MEDS: LEVOFLOXACIN 750MG-D5W PMX 750 MG in DEXTROSE/WATER 1 150ML.BAG IVPB SCH (07:18)
[2017-11-25] MEDS: LORATADINE 10 MG TAB PO SCH (08:00)
[2017-11-25 08:02] VITALS: BP 122/69; PULSE 67; TEMP 97.6
[2017-11-25 08:34] LABS: Prothrombin Time 18.4 sec (9.0-12.0)
--- NOTE | 2017-11-25 09:33 | P.DS ---
Providers Date of admission: 11/23/17 13:06 Expected date of discharge: 11/25/17 Attending physician: Melva Agee DO Consults: None Primary care physician: Sophia Caraballo - Discharge Diagnosis(es) (1) UTI (urinary tract infection) Status: Acute (2) Viral URI Status: Acute (3) Weakness Status: Acute (4) Unsteady gait Status: Acute (5) Subtherapeutic anticoagulation Status: Acute (6) Chronic kidney disease (CKD), stage III (moderate) Status: Chronic (7) Hyperlipemia Status: Chronic Hospital Course: Patient is an 86-year-old male past medical history of stroke with residual left-sided weakness, high cholesterol, glaucoma, and prior pulmonary embolism who presented to the emergency department at the direction of his primary care physician after 2 days of flulike symptoms. In the ER he underwent an extensive evaluation. His initial vital signs were within normal limits. Chest x-ray revealed no acute process. Initial laboratory analysis was essentially unremarkable other than a creatinine of 1.27 which appears to be at baseline for him and a slightly low INR at 1.9 Influenza nasal swab was negative. He was given a liter of fluids. They attempted to ambulate him in the ER but he was too weak to ambulate and they were concerned about impending sepsis and therefore requested admission for observation. His cough worsened and he spiked a fever. Urinalysis was obtained which showed urinary tract infection. He was started on Levaquin, his INR was monitored closely and ranged between 1.6-2 during admission. He had continued to have difficulty with ambulation. Physical therapy had recommended possible need for residential, however the patient refused. We also discussed home health and after much discussion the patient agreed. His INR was therapeutic and his cough had improved. He was afebrile for > 48 hours. His WBC count never elevated, He was determined stable for discharge. Home. He will have home health. unfortunately, we are unable to obtain a urine culture during his hospitalization prior to initiation of antibiotics. He was sent with an order to have an INR drawn 11/27 or 11/28 through home health with results to Dr. Sophia Caraballo his primary care physician. Patient seen and examined at bedside. Felling much better. Cough resolved. No dysuria. No nausea or vomiting. Vital signs reviewed and stable. General: non toxic, no distress, appears at stated age Derm: warm, dry Head: atraumatic, normocephalic, symmetric Eyes: EOMI, no lid lag, anicteric sclera Mouth: no lip lesion, mucus membranes moist Cardiovascular: S1S2 reg, no murmur, positive posterior tibial pulse bilateral, Lungs: CTA bilateral, no rhonchi, no rales , no accessory muscle use Abdominal: soft, nontender to palpation, no guarding, no appreciable organomegaly Ext: no gross muscle atrophy, no edema, no contractures Neuro: CN II-XI grossly intact, no focal neuro deficits Psych: Alert, oriented, appropriate affect A total of 35 minutes of time were spent preparing this complex discharge summary . Pertinent Studies: chest x-ray: No acute process Procedures: none Patient Condition at Discharge: Good Plan - Discharge Summary Discharge Rx Participant: No New Discharge Prescriptions: New Benzonatate [Tessalon Perles] 100 mg PO TID PRN #90 cap PRN Reason: Cough Fluticasone Nasal [place] [Flonase Nasal [place]] 2 spray EA NOSTRIL DAILY #1 bottle Levofloxacin [Levaquin] 500 mg PO DAILY #3 tab Loratadine [Claritin] 10 mg PO DAILY #30 tab Continue Warfarin [Coumadin] 2.5 mg PO Q48H Warfarin [Coumadin] 5 mg PO Q48H Discharge Medication List Warfarin [Coumadin] 2.5 mg PO Q48H 10/15/17 [History] Warfarin [Coumadin] 5 mg PO Q48H 10/15/17 [History] Benzonatate [Tessalon Perles] 100 mg PO TID PRN #90 cap 11/25/17 [Rx] Fluticasone Nasal [place] [Flonase Nasal [place]] 2 spray EA NOSTRIL DAILY #1 bottle 11/25/17 [Rx] Levofloxacin [Levaquin] 500 mg PO DAILY #3 tab 11/25/17 [Rx] Loratadine [Claritin] 10 mg PO DAILY #30 tab 11/25/17 [Rx] Follow up Appointment(s)/Referral(s): Sophia Caraballo DO [Primary Care Provider] - 12/01/17 10:00 am [facility], [NON-STAFF] - 1 Week Ambulatory/Diagnostic Orders: Prothrombin Time INR [LAB.AMB] Location: Determined By Patient Patient Instructions/Handouts: Upper Respiratory Infection (ED) Activity/Diet/Wound Care/Special Instructions: heart healthy diet activity as tolerated You are still weak and will really benefit from home health with physical therapy. Home health can draw your Coumadin level. Discharge Disposition: HOME WITH HOME HEALTH SERVICES
== END 2017-11-25 10:49 | disposition home health service (06) | DRG 690 ==
LOC: EC 15:16 → 5MS5E 19:06 → OBSVTOIN 11-23 13:06
PROVIDERS: ADMIT Internal Medicine; ATTEND Internal Medicine
DX: N39.0 Urinary tract infection, site not specified (principal); I69.354 Hemiplegia and hemiparesis following cerebral infarction affecting left non-dominant side; E86.0 Dehydration; N18.3 Chronic kidney disease, stage 3 (moderate); J06.9 Acute upper respiratory infection, unspecified; E78.00 Pure hypercholesterolemia, unspecified; H40.9 Unspecified glaucoma; R79.1 Abnormal coagulation profile; Z96.1 Presence of intraocular lens; Z66 Do not resuscitate; Z79.01 Long term (current) use of anticoagulants; Z85.46 Personal history of malignant neoplasm of prostate; Z86.711 Personal history of pulmonary embolism; Z87.891 Personal history of nicotine dependence; Z98.41 Cataract extraction status, right eye; Z98.42 Cataract extraction status, left eye
CPT/HCPCS: 36415; 71045; 71046; 80048; 80053; 81001; 84484; 85025; 85027; 85610; 87502; 93005; 94760; 96360; 99285

== ENCOUNTER 2018-12-23 22:25 | Observation (INO) | payer MEDICARE ==
[2018-12-23] MEDS ORDERED: ASPIRIN 81 MG PO STA (22:40)
--- NOTE | 2018-12-23 22:47 | ED ---
General Adult HPI - General Chief complaint: Chest Pain Stated complaint: Chest pain Time Seen by Provider: 12/23/18 22:39 Source: patient, family, RN notes reviewed Mode of arrival: wheelchair Limitations: no limitations - History of Present Illness Initial comments: Patient is a pleasant 88-year-old male presenting to the emergency Department with complaints of chest discomfort. Onset was past day or so. Patient has had a nonproductive cough. No fevers. No leg pain or leg swelling. Patient does feel short of breath. No nausea vomiting. No diaphoresis. Patient does have history of pulmonary embolism and is currently on Coumadin for this. - Related Data Home Medications Medication Instructions Recorded Confirmed Warfarin [Coumadin] 5 mg PO HS 10/15/17 12/23/18 Brimonidine Tartrate [Alphagan P 1 drops BOTH EYES DAILY 12/23/18 12/23/18 0.2% Ophth Soln] Allergies Allergy/AdvReac Type Severity Reaction Status Date / Time No Known Allergies Allergy Verified 12/23/18 22:47 Review of Systems ROS Statement: Those systems with pertinent positive or pertinent negative responses have been documented in the HPI. ROS Other: All systems not noted in ROS Statement are negative. 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 Past Anesthesia/Blood Transfusion Reactions: No Reported Reaction Past Psychological History: No Psychological Hx Reported Smoking Status: Former smoker Past Alcohol Use History: None Reported Past Drug Use History: None Reported - Past Family History Father Family Medical History: No Reported History Additional Family Medical History / Comment(s): FATHER WAS HEALTHY AND LIVED TO BE IN HIS 90'S Mother Family Medical History: Cancer Additional Family Medical History / Comment(s): MOTHER HAD SPINAL CANCER AND AT THE AGE OF 68YRS. General Exam Limitations: no limitations General appearance: alert, in no apparent distress Head exam: Present: atraumatic Eye exam: Present: normal appearance, PERRL ENT exam: Present: normal oropharynx Neck exam: Present: normal inspection Respiratory exam: Present: rales (Right lower) Cardiovascular Exam: Present: tachycardia Expanded Peripheral pulses: 2+: Radial (R), Radial (L), Posterior Tibialis (R), Posterior Tibialis (L) GI/Abdominal exam: Present: soft. Absent: distended, tenderness Extremities exam: Present: pedal edema (Trace bilateral). Absent: calf tenderness Neurological exam: Present: alert Psychiatric exam: Present: normal affect, normal mood Skin exam: Present: normal color Course Vital Signs 12/23/18 22:28 Temperature 98 F Pulse Rate 116 H Respiratory 18 Rate Blood Pressure 150/82 O2 Sat by Pulse 93 L Oximetry EKG Findings - EKG Comments: EKG Findings:: Sinus tachycardia 112. AK 152. QRS 108. QT 342. QTC 466. Normal axis. Incomplete right bundle-branch block. Nonspecific T waves. Medical Decision Making - Medical Decision Making Patient reevaluated and resting comfortably in bed. Computed tomography scan ordered. INR is 1.8 and patient is provided larger than normal dose of his Coumadin. Practitioner Lars notified. - Lab Data Result diagrams: 12/23/18 22:53 12/23/18 22:53 Lab Results 12/23/18 12/23/18 12/23/18 Range/Units 22:53 22:53 22:53 WBC 13.0 H (3.8-10.6) k/uL RBC 4.77 (4.30-5.90) m/uL Hgb 14.7 (13.0-17.5) gm/dL Hct 44.2 (39.0-53.0) % MCV 92.7 (80.0-100.0) fL MCH 30.9 (25.0-35.0) pg MCHC 33.3 (31.0-37.0) g/dL RDW 13.4 (11.5-15.5) % Plt Count 154 (150-450) k/uL Neutrophils % 78 % Lymphocytes % 13 % Monocytes % 5 % Eosinophils % 3 % Basophils % 0 % Neutrophils # 10.1 H (1.3-7.7) k/uL Lymphocytes # 1.7 (1.0-4.8) k/uL Monocytes # 0.6 (0-1.0) k/uL Eosinophils # 0.4 (0-0.7) k/uL Basophils # 0.1 (0-0.2) k/uL PT (9.0-12.0) sec INR (<1.2) APTT (22.0-30.0) sec Sodium 139 (137-145) mmol/L Potassium 4.2 (3.5-5.1) mmol/L Chloride 109 H (98-107) mmol/L Carbon Dioxide 22 (22-30) mmol/L Anion Gap 8 mmol/L BUN 19 (9-20) mg/dL Creatinine 1.38 H (0.66-1.25) mg/dL Est GFR (CKD-EPI)AfAm 52 (>60 ml/min/1.73 sqM) Est GFR (CKD-EPI)NonAf 45 (>60 ml/min/1.73 sqM) Glucose 149 H (74-99) mg/dL Calcium 8.7 (8.4-10.2) mg/dL Magnesium 2.0 (1.6-2.3) mg/dL Total Bilirubin 0.7 (0.2-1.3) mg/dL AST 21 (17-59) U/L ALT 23 (21-72) U/L Alkaline Phosphatase 95 (38-126) U/L Total Creatine Kinase 64 (55-170) U/L CK-MB (CK-2) 0.5 (0.0-2.4) ng/mL CK-MB (CK-2) Rel Index 0.8 Troponin I <0.012 (0.000-0.034) ng/mL Total Protein 6.6 (6.3-8.2) g/dL Albumin 3.6 (3.5-5.0) g/dL 12/23/18 Range/Units 23:33 WBC (3.8-10.6) k/uL RBC (4.30-5.90) m/uL Hgb (13.0-17.5) gm/dL Hct (39.0-53.0) % MCV (80.0-100.0) fL MCH (25.0-35.0) pg MCHC (31.0-37.0) g/dL RDW (11.5-15.5) % Plt Count (150-450) k/uL Neutrophils % % Lymphocytes % % Monocytes % % Eosinophils % % Basophils % % Neutrophils # (1.3-7.7) k/uL Lymphocytes # (1.0-4.8) k/uL Monocytes # (0-1.0) k/uL Eosinophils # (0-0.7) k/uL Basophils # (0-0.2) k/uL PT 17.6 H (9.0-12.0) sec INR 1.8 H (<1.2) APTT 20.4 L (22.0-30.0) sec Sodium (137-145) mmol/L Potassium (3.5-5.1) mmol/L Chloride (98-107) mmol/L Carbon Dioxide (22-30) mmol/L Anion Gap mmol/L BUN (9-20) mg/dL Creatinine (0.66-1.25) mg/dL Est GFR (CKD-EPI)AfAm (>60 ml/min/1.73 sqM) Est GFR (CKD-EPI)NonAf (>60 ml/min/1.73 sqM) Glucose (74-99) mg/dL Calcium (8.4-10.2) mg/dL Magnesium (1.6-2.3) mg/dL Total Bilirubin (0.2-1.3) mg/dL AST (17-59) U/L ALT (21-72) U/L Alkaline Phosphatase (38-126) U/L Total Creatine Kinase (55-170) U/L CK-MB (CK-2) (0.0-2.4) ng/mL CK-MB (CK-2) Rel Index Troponin I (0.000-0.034) ng/mL Total Protein (6.3-8.2) g/dL Albumin (3.5-5.0) g/dL - Radiology Data Radiology results: image reviewed (Chest x-ray shows no acute abnormality) Disposition Clinical Impression: Chest pain Disposition: ADMITTED IP TO THIS [facility] Is patient prescribed a controlled substance at d/c from ED?: No Referrals: Sophia Caraballo DO [Primary Care Provider] - 1-2 days Decision Time: 00:32
[2018-12-23 23:08] LABS: Basophils # (A) 0.1 k/uL (0-0.2); Basophils % (A) 0 %; Eosinophils # (A) 0.4 k/uL (0-0.7); Eosinophils % (A) 3 %; HCT 44.2 % (39.0-53.0); HGB 14.7 gm/dL (13.0-17.5); Lymphocytes # (A) 1.7 k/uL (1.0-4.8); Lymphocytes % (A) 13 %; MCH 30.9 pg (25.0-35.0); MCHC 33.3 g/dL (31.0-37.0); MCV 92.7 fL (80.0-100.0); Mean Platelet Volume 7.3; Monocytes # (A) 0.6 k/uL (0-1.0); Monocytes % (A) 5 %; Neutrophils # (A) 10.1 k/uL (1.3-7.7); Neutrophils % (A) 78 %; Platelet Count 154 k/uL (150-450); RBC 4.77 m/uL (4.30-5.90); RDW 13.4 % (11.5-15.5)
[2018-12-23 23:20] LABS: Albumin 3.6 g/dL (3.5-5.0); Calcium 8.7 mg/dL (8.4-10.2); Potassium 4.2 mmol/L (3.5-5.1); Total Bilirubin 0.7 mg/dL (0.2-1.3); Total Protein 6.6 g/dL (6.3-8.2)
--- NOTE | 2018-12-23 23:28 | XR ---
EXAM: XR Chest, 2 Views CLINICAL HISTORY: ITS.REASON XR Reason: Chest Pain TECHNIQUE: Frontal and lateral views of the chest. COMPARISON: 01/13/18 FINDINGS: Lungs: Unremarkable. No consolidation. Pleural space: Unremarkable. No pneumothorax. Heart: Stable. No cardiomegaly. Mediastinum: Unremarkable. Bones/joints: Unremarkable. IMPRESSION: Stable examination of the chest. No acute findings.
[2018-12-23 23:42] LABS: Creatine Kinase 64 U/L (55-170)
[2018-12-23 23:54] LABS: Creatine Kinase MB 0.5 ng/mL (0.0-2.4); Troponin I <0.012 ng/mL (0.000-0.034)
[2018-12-24 00:02] LABS: INR 1.8 (<1.2); Prothrombin Time 17.6 sec (9.0-12.0)
[2018-12-24 00:05] LABS: Partial Thromboplastin Time 20.4 sec (22.0-30.0)
[2018-12-24] MEDS ORDERED: WARFARIN 7.5 MG TAB PO ONE (00:23)
[2018-12-24] MEDS ORDERED: SODIUM CHLORIDE 0.9% 250 ML IV STA (00:32)
[2018-12-24] MEDS ORDERED: NITROGLYCERIN SL TABS 0.4 MG TAB SUBLINGUAL PRN (00:36)
--- NOTE | 2018-12-24 01:12 | CT ---
EXAM: CT Angiography Chest With Intravenous Contrast CLINICAL HISTORY: Chest pain TECHNIQUE: Axial computed tomographic angiography images of the chest with intravenous contrast using pulmonary embolism protocol. CTDI is 13.7 mGy and DLP is 616.1 mGy-cm. This CT exam was performed using one or more of the following dose reduction techniques: automated exposure control, adjustment of the mA and/or kV according to patient size, and/or use of iterative reconstruction technique. MIP reconstructed images were created and reviewed. COMPARISON: 02/27/2017 FINDINGS: Limitations: There is significant respiratory artifact throughout the chest which causes image degradation and limits detailed evaluation of the subsegmental pulmonary artery branches, were present. Pulmonary arteries: Accounting for limitations with respiratory artifact, there is no definite evidence for pulmonary embolism. The filling defect involving the right posterior basal segments on the previous CT examination are not clearly evident, suggesting interval resolution. Aorta: No acute findings. No thoracic aortic aneurysm. Lungs: Minimal subsegmental dependent changes at the bilateral lung bases are presumed atelectasis. No mass. Pleural space: The previous right pleural effusion has resolved. No pneumothorax. Heart: Unremarkable. No cardiomegaly. No significant pericardial effusion. Bones/joints: No acute fracture. No dislocation. Soft tissues: Unremarkable. Lymph nodes: Unremarkable. No enlarged lymph nodes. IMPRESSION: 1. Accounting for limitations with respiratory artifact, there is no definite evidence for pulmonary embolism. The filling defect involving the right posterior basal segments on the previous CT examination are not clearly evident, suggesting interval resolution. 2. No focal consolidation. No pleural effusion or pneumothorax.
[2018-12-24 03:36] VITALS: BMI 31.1
[2018-12-24] MEDS ORDERED: NITROGLYCERIN OINT 1 INCH/GM PACKET TOPICAL SCH (06:00)
[2018-12-24 06:34] LABS: Creatine Kinase 91 U/L (55-170)
[2018-12-24 06:45] LABS: Troponin I <0.012 ng/mL (0.000-0.034)
[2018-12-24 07:21] VITALS: RESP 18
--- NOTE | 2018-12-24 10:06 | P.CRDCN ---
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 He denies history of coronary artery disease, diabetes mellitus or hypertension. He does not follow with a small animal caretaker. We have been asked to see him in consultation for chest pain. He states he has been coughing for the last week or so. He is not bringing up any sputum and denies fever or chills at home. Starting 2 days ago he had pain in the chest with cough or with deep breathing. The pain felt like his chest was caving in whenever he coughs or tries to take a deep breath. He denies exertional chest pain. He also complains of frequent nasal drainage. He denies shortness of breath, dizziness or palpitations. EKG reveals sinus tachycardia heart rate 112 with right bundle branch block and T-wave inversions in precordial leads. Compared to old EKG no changes from 2017. Chest x-ray is negative for acute cardiopulmonary process. CTA chest with no evidence of PE no focal consolidation, no pleural effusion and no pneumothorax noted. No acute findings within the aorta. Laboratory data reviewed, WBC 13, hemoglobin 14.7, platelets 154, INR 1.8, sodium 139, potassium 4.2, creatinine 1.3, magnesium 2.0 cardiac enzymes negative 2, continue proBNP 63. 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 At the time of my exam: CONSTITUTIONAL: Denies fever. Denies chills. EYES: Denies blurred vision. Denies vision changes. Denies eye pain. EARS, NOSE, MOUTH & THROAT: Denies headache. Denies sore throat. Denies ear pain. CARDIOVASCULAR: Denies chest pain. Denies shortness of breath. Denies orthopnea. Denies PND. Denies palpitations. RESPIRATORY: Denies cough. GASTROINTESTINAL: Denies abdominal pain. Denies diarrhea. Denies constipation. Denies nausea. Denies vomiting. MUSCULOSKELETAL: Denies myalgias. INTEGUMENTARY: Denies pruitis. Denies rash. NEUROLOGIC: Denies numbness. Denies tingling. Denies weakness. PSYCHIATRIC: Denies anxiety. Denies depression. ENDOCRINE: Denies fatigue. Denies weight change. Denies polydipsia. Denies polyurina. GENITOURINARY: Denies burning, hematuria or urgency with micturation. HEMATOLOGIC: Denies history of anemia. Denies bleeding. Blood pressure 120/70 heart rate 79 afebrile maintaining oxygen saturation on room air GENERAL: This is a 88-year-old male in no apparent distress at the time of my examination. HEENT: Head is atraumatic, normocephalic. Pupils are equal, round. Sclerae anicteric. Conjunctivae are clear. Mucous membranes of the mouth are moist. Neck is supple. There is no jugular venous distention. No carotid bruit is heard. LUNGS: Clear to auscultation no wheezes, rales or rhonchi. No chest wall tenderness is noted on palpation or with deep breathing. Diminished bilaterally. HEART: Regular rate and rhythm with murmur at the left sternal border, no rubs or gallops. S1 and S2 heard. ABDOMEN: Soft, nontender. Bowel sounds are heard. No organomegaly noted. EXTREMITIES: No evidence of peripheral edema and no calf tenderness noted. VASCULAR: Radial and dorsalis pedis pulses palpated, no evidence of clubbing. NEUROLOGIC: Patient is awake, alert and oriented x3. ASSESSMENT Pleuritic chest pain, atypical for angina. History of PE on detention anticoaguation Leukocytosis Chronic kidney disease PLAN Continue to obtain serial cardiac enzymes to rule out an acute coronary event. Obtain 2D echocardiogram and doppler study to assess cardiac structure and function. If LV function and wall motion is normal he is stable. Pain is very atypical for angina, related to coughing. Conservative medical therapy is recommended. Follow up with Dr. Wilson in 2-3 weeks for outpatient stress test as needed. Ongoing medical management of underlying respiratory illness. Thank you kindly for this consultation. The above impression and plan of care have been discussed and directed by the signing physician. Tomeka Aragon, nurse practitioner, acting as scribe for signing physician. Past Medical History Past Medical History: Cancer, CVA/TIA, Hyperlipidemia, Prostate Disorder, Pulmonary Embolus (PE) Additional Past Medical History / Comment(s): BILATERAL GLAUCOMA, TIA, CVA with residula left sided weakness, PROSTATE CANCER had SURGERY/RADIATION, upper front bridge History of Any Multi-Drug Resistant Organisms: None Reported Past Surgical History: Appendectomy, Cholecystectomy, Prostate Surgery Additional Past Surgical History / Comment(s): PROSTATECTOMY, COLONOSCOPY small polyp removed-benign, BILATERAL CATARACT REMOVAL WITH LENS IMPLANTS. Past Anesthesia/Blood Transfusion Reactions: No Reported Reaction Past Psychological History: No Psychological Hx Reported Additional Psychological History / Comment(s): PT LIVES WITH HIS SON. HE USES A WALKER TO AMBULATE. THERE IS A DOG IN THE HOME. HE DOES NOT DRIVE. Smoking Status: Never smoker Past Alcohol Use History: None Reported Additional Past Alcohol Use History / Comment(s): pt stated he started smoking cigars at age 57 1-2 a day. Past Drug Use History: None Reported - Past Family History Father Family Medical History: No Reported History Additional Family Medical History / Comment(s): FATHER WAS HEALTHY AND LIVED TO BE IN HIS 90'S Mother Family Medical History: Cancer Additional Family Medical History / Comment(s): MOTHER HAD SPINAL CANCER AND AT THE AGE OF 68YRS. Medications and Allergies Home Medications Medication Instructions Recorded Confirmed Type Warfarin [Coumadin] 5 mg PO HS 10/15/17 12/24/18 History Brimonidine Tartrate [Alphagan P 1 drops BOTH EYES DAILY 12/23/18 12/24/18 History 0.2% Ophth Soln] Allergies Allergy/AdvReac Type Severity Reaction Status Date / Time No Known Allergies Allergy Verified 12/24/18 03:58 Physical Exam Vitals: Vital Signs Temp Pulse Pulse Pulse Resp BP BP 12/24/18 07:20 98.5 F 79 18 120/70 12/24/18 03:53 98.3 F 102 H 15 12/24/18 03:44 18 12/24/18 01:18 18 12/24/18 00:30 99 16 125/75 12/23/18 22:45 99 16 129/66 12/23/18 22:28 98 F 116 H 18 150/82 BP Pulse Ox 12/24/18 07:20 92 L 12/24/18 03:53 122/69 96 12/24/18 03:44 12/24/18 01:18 12/24/18 00:30 100 12/23/18 22:45 99 12/23/18 22:28 93 L Intake and Output 12/23/18 12/24/18 12/24/18 22:59 06:59 14:59 Other: Voiding Method Toilet # Voids 1 Weight 92.986 kg Results 12/23/18 22:53 12/23/18 22:53 Cardiac Enzymes 12/23/18 12/23/18 12/24/18 Range/Units 22:53 22:53 05:13 AST 21 (17-59) U/L CK-MB (CK-2) 0.5 1.0 (0.0-2.4) ng/mL Troponin I <0.012 <0.012 (0.000-0.034) ng/mL Coagulation 12/23/18 Range/Units 23:33 PT 17.6 H (9.0-12.0) sec APTT 20.4 L (22.0-30.0) sec CBC 12/23/18 Range/Units 22:53 WBC 13.0 H (3.8-10.6) k/uL RBC 4.77 (4.30-5.90) m/uL Hgb 14.7 (13.0-17.5) gm/dL Hct 44.2 (39.0-53.0) % Plt Count 154 (150-450) k/uL Comprehensive Metabolic Panel 12/23/18 Range/Units 22:53 Sodium 139 (137-145) mmol/L Potassium 4.2 (3.5-5.1) mmol/L Chloride 109 H (98-107) mmol/L Carbon Dioxide 22 (22-30) mmol/L BUN 19 (9-20) mg/dL Creatinine 1.38 H (0.66-1.25) mg/dL Glucose 149 H (74-99) mg/dL Calcium 8.7 (8.4-10.2) mg/dL AST 21 (17-59) U/L ALT 23 (21-72) U/L Alkaline Phosphatase 95 (38-126) U/L Total Protein 6.6 (6.3-8.2) g/dL Albumin 3.6 (3.5-5.0) g/dL Current Medications Generic Name Dose Route Start Last Admin Trade Name Freq PRN Reason Stop Dose Admin Aspirin 325 mg 12/25/18 09:00 Aspirin PO DAILY RAYNE Nitroglycerin 1 inch 12/24/18 06:00 12/24/18 05:16 Nitro-Bid Oint TOPICAL Not Given Q6HR RAYNE Nitroglycerin 0.4 mg 12/24/18 00:36 Nitrostat SUBLINGUAL Q5M PRN Chest Pain Intake and Output 12/23/18 12/24/18 12/24/18 22:59 06:59 14:59 Other: Voiding Method Toilet # Voids 1 Weight 92.986 kg 12/23/18 22:53 12/23/18 22:53
--- NOTE | 2018-12-24 10:51 | ECHOF ---
Referral Reason:cp MEASUREMENTS -------- HEIGHT: 172.7 cm WEIGHT: 93.0 kg BP: 120/70 RVIDd: 4.8 cm (< 3.3) IVSd: 1.2 cm (0.6 - 1.1) LVIDd: 3.2 cm (3.9 - 5.3) LVPWd: 1.3 cm (0.6 - 1.1) IVSs: 1.3 cm LVIDs: 2.2 cm LVPWs: 1.2 cm Ao Diam: 4.5 cm (2.0 - 3.7) AV Cusp: 1.8 cm (1.5 - 2.6) LA Diam: 3.5 cm (2.7 - 3.8) MV EXCURSION: 17.961 mm (> 18.000) MV EF SLOPE: 83 mm/s (70 - 150) EPSS: 0.8 cm MV E Krystian: 0.38 m/s MV DecT: 360 ms MV A Krystian: 0.86 m/s MV E/A Ratio: 0.45 RAP: 5.00 mmHg RVSP: 54.83 mmHg FINDINGS -------- Sinus rhythm. This was a techncally difficult study with suboptimal views, , Lumason utilized for enhancement of im ages. The left ventricular size is normal. There is mild concentric left ventricular hypertrophy. Overa ll left ventricular systolic function is low-normal with, an EF between 50 - 55 %. The right ventricle is severely enlarged. The left atrial size is normal. The right atrial size is normal. 5.0mg OF Lumason UTLIZED: 2 OR MORE WALL SEGMENTS NOT VISUALIZED. There is mild aortic valve sclerosis. There is no evidence of aortic regurgitation. Mild mitral annular calcification present. Mild mitral regurgitation is present. Mild tricuspid regurgitation present. There is moderate pulmonary hypertension. The right ventric ular systolic pressure, as measured by Doppler, is 54.83mmHg. The pulmonic valve was not well visualized. 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 Echo free space represents a pericardial fat pad. CONCLUSIONS -------- 1. This was a techncally difficult study with suboptimal views, , Lumason utilized for enhancement of images. 2. The left ventricular size is normal. 3. There is mild concentric left ventricular hypertrophy. 4. Overall left ventricular systolic function is low-normal with, an EF between 50 - 55 %. 5. The right ventricle is severely enlarged. 6. The left atrial size is normal. 7. The right atrial size is normal. 8. 5.0mg OF Lumason UTLIZED: 2 OR MORE WALL SEGMENTS NOT VISUALIZED. 9. There is mild aortic valve sclerosis. 10. Mild mitral annular calcification present. 11. Mild mitral regurgitation is present. 12. Mild tricuspid regurgitation present. 13. There is moderate pulmonary hypertension. 14. The right ventricular systolic pressure, as measured by Doppler, is 54.83mmHg. 15. The pulmonic valve was not well visualized. 16. 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 17. Echo free space represents a pericardial fat pad. ALCOHOL AND DRUG COUNSELOR: Bel Schroeder RDCS
[2018-12-24 11:06] LABS: HCT 39.1 % (39.0-53.0); HGB 13.6 gm/dL (13.0-17.5); MCH 32.3 pg (25.0-35.0); MCHC 34.9 g/dL (31.0-37.0); MCV 92.5 fL (80.0-100.0); Mean Platelet Volume 6.2; Platelet Count 150 k/uL (150-450); RBC 4.23 m/uL (4.30-5.90); RDW 13.5 % (11.5-15.5); WBC 9.1 k/uL (3.8-10.6)
[2018-12-24 11:13] LABS: INR 2.4 (<1.2); Prothrombin Time 23.2 sec (9.0-12.0)
[2018-12-24 11:21] VITALS: BP 107/67; PULSE 70; TEMP 98.3
[2018-12-24 11:21] LABS: Cholesterol 180 mg/dL (<200); HDL Cholesterol 50 mg/dL (40-60); LDL Cholesterol,Calculated 104 mg/dL (0-99); Triglycerides 130 mg/dL (<150)
[2018-12-24 11:43] LABS: Creatine Kinase MB 1.1 ng/mL (0.0-2.4); Troponin I 0.012 ng/mL (0.000-0.034)
--- NOTE | 2018-12-24 13:33 | P.HPIM ---
History of Present Illness H&P Date: 12/24/18 Chief Complaint: Chest pain Very pleasant 88-year-old gentleman past medical history significant for PE on Coumadin comes in with complaints of chest pain. The patient says that he's been having chest pain along with nonproductive cough for the past 4 weeks. He says that he has chest pain while coughing. He does not complain of any shortness of breath except for when he is coughing. He does not complain of any racing heart, no abdominal pain, nausea and vomiting, no diarrhea constipation, no tingling numbness of any extremities, and additional rest. Next ER course-his temperature was 98 pulse rate is 160 respiration 18 blood pressure 150/82 satting 93% on room air. Labwork done in the ER showed hemoglobin 14.7 hematocrit 44.2 WBC 13.0 platelets 154 sodium 139 potassium 4.2 chloride 109 bicarb 22 bun 19 creatinine 1.38 blood sugars of 149. Patient had a CT of the chest done which showed no PE no consolidation. Patient was thus admitted to the hospitalist service for further urology management with cardiology consult. Review of Systems All systems: negative Past Medical History Past Medical History: Cancer, CVA/TIA, Hyperlipidemia, Prostate Disorder, Pulmonary Embolus (PE) Additional Past Medical History / Comment(s): BILATERAL GLAUCOMA, TIA, CVA with residula left sided weakness, PROSTATE CANCER had SURGERY/RADIATION, upper front bridge History of Any Multi-Drug Resistant Organisms: None Reported Past Surgical History: Appendectomy, Cholecystectomy, Prostate Surgery Additional Past Surgical History / Comment(s): PROSTATECTOMY, COLONOSCOPY small polyp removed-benign, BILATERAL CATARACT REMOVAL WITH LENS IMPLANTS. Past Anesthesia/Blood Transfusion Reactions: No Reported Reaction Past Psychological History: No Psychological Hx Reported Additional Psychological History / Comment(s): PT LIVES WITH HIS SON. HE USES A WALKER TO AMBULATE. THERE IS A DOG IN THE HOME. HE DOES NOT DRIVE. Smoking Status: Never smoker Past Alcohol Use History: None Reported Additional Past Alcohol Use History / Comment(s): pt stated he started smoking cigars at age 57 1-2 a day. Past Drug Use History: None Reported - Past Family History Father Family Medical History: No Reported History Additional Family Medical History / Comment(s): FATHER WAS HEALTHY AND LIVED TO BE IN HIS 90'S Mother Family Medical History: Cancer Additional Family Medical History / Comment(s): MOTHER HAD SPINAL CANCER AND AT THE AGE OF 68YRS. Medications and Allergies Home Medications Medication Instructions Recorded Confirmed Type Warfarin [Coumadin] 5 mg PO HS 10/15/17 12/24/18 History Brimonidine Tartrate [Alphagan P 1 drops BOTH EYES DAILY 12/23/18 12/24/18 History 0.2% Ophth Soln] Allergies Allergy/AdvReac Type Severity Reaction Status Date / Time No Known Allergies Allergy Verified 12/24/18 03:58 Physical Exam Vitals: Vital Signs Temp Pulse Pulse Pulse Resp BP BP 12/24/18 08:00 18 12/24/18 07:20 98.5 F 79 18 120/70 12/24/18 03:53 98.3 F 102 H 15 12/24/18 03:44 18 12/24/18 01:18 18 12/24/18 00:30 99 16 125/75 12/23/18 22:45 99 16 129/66 12/23/18 22:28 98 F 116 H 18 150/82 BP Pulse Ox 12/24/18 08:00 12/24/18 07:20 92 L 12/24/18 03:53 122/69 96 12/24/18 03:44 12/24/18 01:18 12/24/18 00:30 100 12/23/18 22:45 99 12/23/18 22:28 93 L Intake and Output 12/23/18 12/24/18 12/24/18 22:59 06:59 14:59 Other: Voiding Method Toilet Toilet # Voids 1 Weight 92.986 kg On exam, alert and oriented x3. HEENT: Conjunctivae normal. eyes normal. NECK: No JVD. No thyroid enlargement. No LNs CARDIOVASCULAR: S1, S2 RESPIRATION: Breath sounds diminished in the bases. No rhonchi or crackles. No bronchial breathing. ABDOMEN: Soft, nontender . No guarding. no masses palpable. No ascites, No hepatosplenomegaly.Bowel sounds heard. LEGS: No edema. no swelling NERVOUS SYSTEM: Cranial N 2-12 grossly normal. Moves all 4 limbs. As weakness in the left side probably because of the previous stroke Skin: no ulcer no rash Joints: No active swelling. No inflammation. Results CBC & Chem 7: 12/23/18 22:53 12/23/18 22:53 Labs: Abnormal Lab Results - Last 24 Hours (Table) 12/23/18 12/23/18 12/23/18 Range/Units 22:53 22:53 23:33 WBC 13.0 H (3.8-10.6) k/uL Neutrophils # 10.1 H (1.3-7.7) k/uL PT 17.6 H (9.0-12.0) sec INR 1.8 H (<1.2) APTT 20.4 L (22.0-30.0) sec Chloride 109 H (98-107) mmol/L Creatinine 1.38 H (0.66-1.25) mg/dL Glucose 149 H (74-99) mg/dL Thrombosis Risk Factor Assmnt - Choose All That Apply Any of the Below Risk Factors Present?: No Other Risk Factors: Yes Each Risk Factor Represents 3 Points: Age 75 years or older Other congenital or acquired thrombophilia - If yes, enter type in comment: No Thrombosis Risk Factor Assessment Total Risk Factor Score: 3 Thrombosis Risk Factor Assessment Level: Moderate Risk Assessment and Plan Assessment: Assessment - Chest pain rule out the cause - Cough - History of PE - Hyperlipidemia - History of prostate cancer Plan - Patient is admitted to observation - Patient will be seen by cardiology - We'll continue the home medications - Repeat lab work in the morning - Continue Coumadin - DVT and GI prophylaxis - Patient is full code
--- NOTE | 2018-12-24 13:45 | P.DS ---
Providers Date of admission: 12/24/18 00:32 Expected date of discharge: 12/24/18 Attending physician: Adilia Saleh Consults: 12/24/18 00:36 Consult Physician Urgent Consulting Provider: Pérez Blum Consult Reason/Comments: cp Do you want consulting provider notified?: Yes Primary care physician: Sophia Caraballo [facility] Course: Discharge diagnosis - Chest pain probably because of cough - History of PE - History of hyperlipidemia - History of prostate cancer Hospital course Very pleasant 88-year-old gentleman past medical history significant a PE on Coumadin comes in with complains of chest pain. He said that he's been having nonproductive cough for the past 4 weeks and he has chest pain only while coughing. He is chest pain-free right now. He was seen by cardiology who suggested that the chest pain is probably because of a cough. Echocardiogram was done which showed ejection fraction 50-55% left ventricular hypertrophic. Patient was cleared by cardiology to be discharged and then follow up with cardiology in 2 weeks for outpatient stress test if needed. Patient is to continue taking his Coumadin and check his INR. Patient was discharged in stable condition. Plan - Discharge Summary Discharge Rx Participant: Yes New Discharge Prescriptions: New Nitroglycerin Sl Tabs [Nitrostat] 0.4 mg SUBLINGUAL Q5M PRN #30 tab PRN Reason: Chest Pain Continue Warfarin [Coumadin] 5 mg PO HS Brimonidine Tartrate [Alphagan P 0.2% Ophth Soln] 1 drops BOTH EYES DAILY Discharge Medication List Warfarin [Coumadin] 5 mg PO HS 10/15/17 [History] Brimonidine Tartrate [Alphagan P 0.2% Ophth Soln] 1 drops BOTH EYES DAILY [History] Nitroglycerin Sl Tabs [Nitrostat] 0.4 mg SUBLINGUAL Q5M PRN #30 tab 12/24/18 [Rx ] Follow up Appointment(s)/Referral(s): Sophia Caraballo DO [Primary Care Provider] - 1-2 days Activity/Diet/Wound Care/Special Instructions: F/U WITH DR AR[facility]UELLO [facility] IN 2 WEEKS FOR POSSIBLE STRESS TEST OP If you have any chest pains, racing heart, increased shortness of breath, any bleeding from anywhere, Dr. vigil, please call 911 immediately. Discharge Disposition: HOME SELF-CARE
[2018-12-25] MEDS ORDERED: ASPIRIN 325 MG TAB PO SCH (09:00)
== END 2018-12-24 14:30 | disposition home or self-care (01) ==
LOC: EC 22:25 → 1SOBS 12-24 00:32
PROVIDERS: ADMIT Internal Medicine; ATTEND Internal Medicine
DX: R07.89 Other chest pain (principal); R07.81 Pleurodynia; R05 Cough; R06.02 Shortness of breath; Z86.711 Personal history of pulmonary embolism; E78.5 Hyperlipidemia, unspecified; D72.829 Elevated white blood cell count, unspecified; Z85.46 Personal history of malignant neoplasm of prostate; I69.354 Hemiplegia and hemiparesis following cerebral infarction affecting left non-dominant side; N18.9 Chronic kidney disease, unspecified; H40.9 Unspecified glaucoma; Z92.3 Personal history of irradiation; Z87.891 Personal history of nicotine dependence; Z79.01 Long term (current) use of anticoagulants; Z79.899 Other long term (current) drug therapy; Z90.49 Acquired absence of other specified parts of digestive tract; Z80.8 Family history of malignant neoplasm of other organs or systems
CPT/HCPCS: 96361; 96360; 99285; 36415 ×2; 93005; 83880; 80061; 80053; 82550 ×2; 82553 ×2; 83735; 84484 ×2; 85025; 85027; 85610 ×2; 85730; 71046; 71275; G0378; C8929; Q9950; Q9967; 93306